=== PATIENT | male | born 1980 | race Two or more races ===

== ENCOUNTER 2024-12-20 16:10 | Inpatient (IN) | payer MEDICARE, MEDICAID, SELFPAY ==
[2024-12-20] VITALS (27 sets, daily range): BP systolic 136–209; BP diastolic 94–146; PULSE 82–162; RESP 6–31; TEMP 36.6–37.1; O2SAT 93–100; BMI 29.1; BMI 25.6
--- NOTE | 2024-12-20 16:23 | XR_ITS ---
Examination: CT brain head without contrast. 2-D sagittal coronal reconstructions Date and time of exam:December 20, 2024 1647 hrs., Comparison March 04, 2020 Indications: Seizure today CTDI: vol (mGy):60 DLP: (mGycm):1332 Technique: Multiple CT axial sections of the brain have been obtained, 5 mm slice thickness. Contrast has not been administered. 2-D sagittal, coronal reconstructions have been obtained Low dose protocols were performed. One or more of the following dose reduction techniques were used; automated exposure control, adjustment of the mA and/or KV according to patient size, use of iterative reconstruction technique. Findings: No significant ventricular enlargement. Encephalomalacia posterior left parietal lobe at the site of prior hemorrhage on the 2019. Scan Intra-axial or extra-axial hemorrhage density is not seen. No mass effect or midline shift Basal cisterns are not remarkable. Fourth ventricle is midline. Posterior left parietal craniotomy defect Impression: Negative for acute hemorrhage, mass effect or midline shift Advise clinical correlation and follow-up accordingly
--- NOTE | 2024-12-20 16:25 | EDNOTE_ITS ---
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 Per medics, family reported the patient was sitting in the car when he began seizing. Described as tonic-clonic lasting ~ 1 minute. On their arrival, noted patient was postictal and has no seizure activity en route. No medications given. Family on scene report the patient is on Keppra, compliant with medications, and last seizure was 1 year ago. Shortly after arriving to the ED, patient began seizing, lasting 2 minutes. Was given 4mg IV versed by medics and taken to ED room 9. On telemetry blood pressure was 200s systolic and HR 160s. Patient on initial assessment is altered and unable to provide any additional history. Related Data Home Medications ?Medication ?Instructions ?Recorded ?Confirmed clonidine HCl 0.1 mg tablet 0.1 mg PO BID 12/21/24 losartan 100 mg tablet 100 mg PO QDAY 12/21/2411/26 Previous Rx's ?Medication ?Instructions ?Recorded lacosamide 100 mg tablet 100 mg PO BID #60 tabs 12/23 levetiracetam 750 mg tablet 750 mg PO BID 30 days #60 tabs 12/23/24 (Keppra) pantoprazole 40 mg tablet,delayed 40 mg PO QDAY #30 ta bs 12/23/24 release Allergies Allergy/AdvReac Type Severity Reaction Status Date / Time No Known Allergies Allergy Verified 06/28/18 16:33 Review of Systems Review of Systems ROS Unobtainable: unobtainable due to mental status Past Medical History Past Medical History CARDIAC: Positive Hypertension Social History SMOKING STATUS: Unknown if ever smoked SUBSTANCE USE: marijuana ED Exam Narrative Physical exam: diaphoretic alterd tachycardic General General appearance: Present in distress and other (Altered, actively seizing, not following commands, diaphoretic) Head Head exam: Present atraumatic Eye Eye exam: Present PERRL ENT ENT exam: Present normal exam, normal oropharynx and mucous membranes moist Neck Neck exam: Present normal inspection Chest Chest inspection: Present normal inspection and symmetric chest wall rise Respiratory Respiratory exam: Present normal lung sounds bilaterally; Absent respiratory distress Cardiovascular Cardiovascular exam: Present tachycardia and normal heart sounds Abdominal Exam Abdominal exam: Present soft and normal bowel sounds; Absent distention, tenderness or guarding Extremities Exam Extremities exam: Present normal inspection Neurological Exam Neurological exam: Present other (Altered, actively seizing, not following commands, moving all 4 extremities) Skin Skin exam: Present warm, dry, intact, normal color and diaphoresis Course Quality Measures none Orders Category Date Time Status CT head/brain wo con Stat Exams 12/20/24 16:23 Completed CBC Stat Lab 12/20/24 16:25 Completed CMP [Comprehensive Metabolic Panel] Stat Lab 12/20/24 16:25 Completed Drug Screen,Urine Stat Lab 12/20/24 18:01 Completed PT [Prothrombin Time with INR] Stat Lab 12/20/24 16:25 Completed Path Review Blood Smear Stat Lab 12/20/24 16:25 Completed UA, C/S IF [Urinalysis, C/S if Indicated] Stat Lab 12/20/24 18:02 Completed DILTIAZEM in D5W 125 MG Med 12/20/24 17:04 Discontinued 125 mg in 125 ml IV 5 mg/hr Diltiazem Inj [Cardizem Inj] Med 12/20/24 16:54 Discontinued 10 mg IV X1 ONE Diltiazem Inj [Cardizem Inj] Med 12/20/24 16:42 Discontinued 125 mg IV .STK-MED ONE Diltiazem Inj [Cardizem Inj] Med 12/20/24 16:54 Discontinued 15 mg IV X1 ONE Diltiazem Inj [Cardizem Inj] Med 12/20/24 17:55 Discontinued 15 mg IV X1 ONE Midazolam Inj [Versed Inj] Med 12/20/24 16:15 Discontinued 2 mg .ROUTE .STK-MED ONE Midazolam Inj [Versed Inj] Med 12/20/24 16:16 Discontinued 4 mg .ROUTE .STK-MED ONE Midazolam Inj [Versed Inj] Med 12/20/24 16:36 Discontinued 5 mg IVP X1 ONE Ondansetron Inj [Zofran Inj] Med 12/20/24 16:24 Discontinued 4 mg IVP X1 ONE levETIRAcetam INJ [Keppra Inj] Med 12/20/24 16:24 Discontinued 1,000 mg IVP X1 ONE Vital Signs Vital signs: Vital Signs Temperature 97.8 F 12/20/24 16:31 Pulse Rate 159 H 12/20/24 16:31 Respiratory Rate 20 12/20/24 16:31 Blood Pressure 209/146 H 12/20/24 16:31 Pulse Oximetry (%) 96 12/20/24 16:31 Oxygen Delivery Method Oxy Mask 12/20/24 16:31 Oxygen Flow Rate 15 12/20/24 16:31 Seizure MDM Narrative MDM Narrative:: Es Doan am scribing for and in the presence of Dr. Perkins. Patient is a 44 yo male with hx of epilepsy in the ED with recurrent seizure and tachycardia. Patient post ictal on initial assessment. VS and exam as listed. Ordered labs, meds, EKG, CT brain. CT brain w/o evidence of acute abnormality, labs w/o any acute hematologic or metabolic abnormality. EKG with evidence of SVT. Patient HR improved with ice packs briefly, then required multiple doses of diltiazem to control heart rate. Given patient post-ictal, hx of intracranial hemorrhage consulted cardiology for guidance as patient with recurrent SVT. 4:52p I spoke with learning and development officer Dr. Pablo. Discussed ED course, persistent SVT and he advised keeping the patient on Diltiazem, did not advise starting on Cardizem. 4:58p I spoke with pharmacy regarding Diltiazem drip. 5:00p I again spoke with learning and development officer Dr. Pablo. He requests we put patient on Diltiazem 5mg/hr. If the HR is greater than 110 after 1 hour states we can increase to 10mg/hr if acceptable or if HR does not drop below 130s. However, states if blood pressure remains okay and has no known heart disease it is okay and can stay on Diltiazem. 6:00p I spoke with hospitalist Dr. Lee. Discussed patients PMHx, HPI, ED course, exam findings, labs, and radiology results. She agrees to accept the patient for admission. Patient data External records reviewed:: [facility] previous records and EMS form Clinical information provided by:: EMS and family Social determinants that could affect healthcare access:: none Patient has the following chronic illnesses:: hemorrhagic stroke (2019 and 2020) with residual right-sided weakness, seizures How is presenting disease/condition affected by chronic disease/condition?: exacerbated by Evaluation data The following diagnostics were reviewed and interpreted by me:: lab results, radiology exam(s) and EKG tracing(s) Lab and/or radiology exams considered but not ordered:: None Interpretation Summary: See MDM Medications / Prescriptions Medications or Prescriptions considered but not ordered:: None Medication administrations:: Medication Administration History Discontinued Medications Acetaminophen (Acetaminophen 325 Mg Tablet) 650 mg PO Q6H PRN PRN Reason: Fever >101.5 Stop: 01/19/25 18:58 Benzocaine (Benzocaine 20% (Hurricaine) [place] 1 Dose) 0 dose TOP X1 ONE Stop: 12/22/24 17:47 Last Admin: 12/23/24 07:58 Dose: Not Given Documented By: STEF Non-Admin Reason: Discontinued Benzocaine (Benzocaine 20% (Hurricaine) [place] 1 Dose) Confirm Administered Dose 1 dose TOP .STK-MED ONE Stop: 12/22/24 17:49 Clonidine (Clonidine Hcl 0.1 Mg Tablet) 0.1 mg PO BID ANDREA Stop: 01/21/25 08:59 Last Admin: 12/23/24 08:17 Dose: 0.1 mg Documented By: Admin: 12/22/24 20:30 Dose: 0.1 mg Documented By: Admin: 12/22/24 09:01 Dose: Not Given Documented By: LISA Non-Admin Reason: NPO Clonidine (Clonidine Hcl 0.1 Mg Tablet) 0.1 mg PO X1 ONE Stop: 12/23/24 12:06 Last Admin: 12/23/24 12:13 Dose: 0.1 mg Documented By: CASSANDRA Diazepam (Diazepam Inj 5 Mg/Ml Vial 2 Ml) 5 mg IVP X1 ONE Stop: 12/20/24 21:30 Diltiazem HCl (Diltiazem Inj 5 Mg/Ml Vial 25 Ml) Confirm Administered Dose 125 mg IV .STK-MED ONE Stop: 12/20/24 16:43 Last Admin: 12/20/24 17:42 Dose: Not Given Documented By: LEYDA Non-Admin Reason: Duplicate Medication on eMAR Diltiazem HCl (Diltiazem Inj 5 Mg/Ml Vial 5 Ml) 15 mg IV X1 ONE Stop: 12/20/24 16:55 Last Admin: 12/20/24 16:58 Dose: 15 mg Documented By: BY Diltiazem HCl (Diltiazem Inj 5 Mg/Ml Vial 5 Ml) 10 mg IV X1 ONE Stop: 12/20/24 16:55 Last Admin: 12/20/24 17:33 Dose: 10 mg Documented By: LEYDA Diltiazem HCl (Diltiazem Inj 5 Mg/Ml Vial 5 Ml) 15 mg IV X1 ONE Stop: 12/20/24 17:56 Last Admin: 12/20/24 17:29 Dose: 15 mg Documented By: BY Diphenhydramine HCl (Diphenhydramine Inj 50 Mg/Ml Vial) 25 mg IVP PRNMRX1 PRN PRN Reason: MODERATE SEDATION Stop: 12/22/24 19:46 Diphenhydramine HCl (Diphenhydramine Inj 50 Mg/Ml Vial) Confirm Administered Dose 50 mg .ROUTE .STK-MED ONE Stop: 12/22/24 17:49 Fentanyl Citrate (Fentanyl Cit Inj 50 Mcg/Ml Amp 2ml) 50 mcg IVP Q2M PRN PRN Reason: MODERATE SEDATION Stop: 12/22/24 19:46 Fentanyl Citrate (Fentanyl Cit Inj 50 Mcg/Ml Amp 2ml) Confirm Administered Dose 100 mcg .ROUTE .STK-MED ONE Stop: 12/22/24 17:49 Hydralazine HCl (Hydralazine Inj 20 Mg/Ml Vial) 10 mg IVP Q6HR PRN PRN Reason: SBP>180 or DBP>100 Stop: 01/20/25 04:23 Last Admin: 12/21/24 04:36 Dose: 10 mg Documented By: CMC Hydralazine HCl (Hydralazine Inj 20 Mg/Ml Vial) Confirm Administered Dose 20 mg .ROUTE .STK-MED ONE Stop: 12/22/24 18:15 Hydralazine HCl (Hydralazine Inj 20 Mg/Ml Vial) 10 mg IVP X1 ONE Stop: 12/22/24 18:37 Last Admin: 12/22/24 18:41 Dose: 10 mg Documented By: EF Hydralazine HCl (Hydralazine Inj 20 Mg/Ml Vial) 10 mg IVP Q4HR PRN PRN Reason: SBP>150 Stop: 01/22/25 08:23 Diltiazem HCl (Diltiazem In D5w 125 Mg) 125 mg in 125 mls @ 5 mls/hr IV .Q24H ANDREA; Protocol Stop: 01/19/25 17:03 Last Admin: 12/20/24 17:39 Dose: 5 mg/hr, 5 mls/hr Documented By: LEYDA Lactated Ringer's (Lactated Ringers) 1,000 mls @ 999 mls/hr IV .Q1H1M ONE Stop: 12/20/24 19:57 Last Infusion: 12/20/24 22:56 Dose: Infused Documented By: [email or web address] Admin: 12/20/24 16:45 Dose: 999 mls/hr Documented By: BY Sodium Chloride (Ns) 1,000 mls @ 100 mls/hr IV .Q10H ANDREA Stop: 01/19/25 18:59 Last Infusion: 12/21/24 13:52 Dose: 100 mls/hr Documented By: Infusion: 12/21/24 12:50 Dose: 0 mls/hr Documented By: Admin: 12/21/24 07:52 Dose: 100 mls/hr Documented By: Infusion: 12/21/24 06:09 Dose: Infused Documented By: Admin: 12/20/24 20:09 Dose: 100 mls/hr Documented By: KEN Potassium Chloride (Kcl Ivpb) 10 meq in 100 mls @ 100 mls/hr IV Q1H ANDREA Stop: 12/20/24 21:03 Last Infusion: 12/21/24 00:00 Dose: Infused Documented By: Admin: 12/20/24 21:46 Dose: 100 mls/hr Documented By: [email or web address] Infusion: 12/20/24 21:09 Dose: Infused Documented By: [email or web address] Admin: 12/20/24 20:08 Dose: 100 mls/hr Documented By: KEN Diltiazem HCl (Diltiazem In D5w 125 Mg) 125 mg in 125 mls @ 10 mls/hr IV .[id number] ANDREA; Protocol Stop: 01/19/25 19:12 Last Admin: 12/21/24 04:07 Dose: 15 mg/hr, 15 mls/hr Documented By: Titration: 12/21/24 04:07 Dose: Infused Documented By: Titration: 12/21/24 00:00 Dose: 15 mg/hr, 15 mls/hr Documented By: Titration: 12/20/24 22:58 Dose: 15 mg/hr, 15 mls/hr Documented By: Admin: 12/20/24 20:10 Dose: 10 mg/hr, 10 mls/hr Documented By: KEN Magnesium Sulfate (Magnesium Sulfate Ivpb) 2 gm in 50 mls @ 25 mls/hr IV X1 ONE Stop: 12/21/24 10:39 Last Admin: 12/21/24 09:17 Dose: 25 mls/hr Documented By: LISA Sodium Phosphate 22.5 mmol/ (Sodium Chloride) 507.5 mls @ 84.583 mls/hr IV X1 ONE Stop: 12/21/24 15:44 Last Admin: 12/21/24 12:50 Dose: 84.583 mls/hr Documented By: LISA Sodium Chloride (Ns) 1,000 mls @ 50 mls/hr IV .Q20H ANDREA Stop: 01/20/25 18:29 Last Admin: 12/22/24 21:14 Dose: 50 mls/hr Documented By: Infusion: 12/22/24 16:09 Dose: Infused Documented By: Admin: 12/21/24 20:09 Dose: 50 mls/hr Documented By: ARDEN Labetalol HCl (Labetalol Inj 5 Mg/Ml Vial 20 Ml) 10 mg IVP X1 ONE Stop: 12/20/24 18:58 Labetalol HCl (Labetalol Inj 5 Mg/Ml Vial 20 Ml) 10 mg IVP X1 ONE Stop: 12/21/24 18:07 Last Admin: 12/21/24 20:24 Dose: 10 mg Documented By: ARDEN Labetalol HCl (Labetalol Inj 5 Mg/Ml Vial 20 Ml) 10 mg IVP Q4HR PRN PRN Reason: SBP >160 Stop: 01/20/25 18:29 Labetalol HCl (Labetalol Inj 5 Mg/Ml Vial 20 Ml) 10 mg IVP X1 ONE Stop: 12/21/24 21:42 Last Admin: 12/21/24 21:53 Dose: 10 mg Documented By: ARDEN Lacosamide (Lacosamide Inj 200 Mg/20 Ml Vial) 200 mg IVP X1 ONE Stop: 12/20/24 20:04 Last Admin: 12/20/24 21:46 Dose: 200 mg Documented By: KEN Lacosamide (Lacosamide Inj 200 Mg/20 Ml Vial) 100 mg IVP BID ANDREA Stop: 01/20/25 08:59 Last Admin: 12/23/24 08:30 Dose: 100 mg Documented By: Admin: 12/22/24 20:31 Dose: 100 mg Documented By: Admin: 12/22/24 10:55 Dose: 100 mg Documented By: Admin: 12/21/24 20:30 Dose: 100 mg Documented By: Admin: 12/21/24 09:18 Dose: 100 mg Documented By: LISA Levetiracetam (Levetiracetam Inj 100 Mg/Ml Vial 5ml) 1,000 mg IVP X1 ONE Stop: 12/20/24 16:25 Last Admin: 12/20/24 16:30 Dose: 1,000 mg Documented By: LETY Levetiracetam (Levetiracetam Inj 100 Mg/Ml Vial 5ml) 500 mg IVP Q12HR ANDREA Stop: 01/19/25 20:59 Last Admin: 12/23/24 08:31 Dose: 500 mg Documented By: Admin: 12/22/24 20:31 Dose: 500 mg Documented By: Admin: 12/22/24 10:57 Dose: 500 mg Documented By: Admin: 12/21/24 20:30 Dose: 500 mg Documented By: Admin: 12/21/24 09:18 Dose: 500 mg Documented By: Admin: 12/20/24 21:46 Dose: 500 mg Documented By: KEN Losartan Potassium (Losartan Potassium 25 Mg Tablet) 100 mg PO QDAY ANDREA Stop: 01/22/25 08:59 Last Admin: 12/23/24 08:16 Dose: 100 mg Documented By: CASSANDRA Midazolam HCl (Midazolam Inj 1 Mg/Ml Vial 2 Ml) Confirm Administered Dose 2 mg .ROUTE .STK-MED ONE Stop: 12/20/24 16:16 Last Admin: 12/20/24 16:37 Dose: Not Given Documented By: ROSE Non-Admin Reason: Change of Condition Midazolam HCl (Midazolam Inj 1 Mg/Ml Vial 2 Ml) Confirm Administered Dose 4 mg .ROUTE .STK-MED ONE Stop: 12/20/24 16:17 Last Admin: 12/20/24 16:37 Dose: Not Given Documented By: ROSE Non-Admin Reason: Change of Condition Midazolam HCl (Midazolam Inj 1 Mg/Ml Vial 2 Ml) 5 mg IVP X1 ONE Stop: 12/20/24 16:37 Last Admin: 12/20/24 17:42 Dose: Not Given Documented By: LEYDA Non-Admin Reason: Discontinued Midazolam HCl (Midazolam Inj 1 Mg/Ml Vial 2 Ml) 2 mg IVP Q5MIN PRN PRN Reason: breakthrough seizure Midazolam HCl (Midazolam Inj 1 Mg/Ml Vial 2 Ml) 2 mg IVP Q2M PRN PRN Reason: Moderate Sedation Stop: 12/22/24 19:46 Midazolam HCl (Midazolam Inj 1 Mg/Ml Vial 2 Ml) Confirm Administered Dose 4 mg .ROUTE .STK-MED ONE Stop: 12/22/24 17:49 Ondansetron HCl (Ondansetron Inj 2 Mg/Ml Inj 2 Ml) 4 mg IVP X1 ONE; Protocol Stop: 12/20/24 16:25 Last Admin: 12/20/24 16:28 Dose: 4 mg Documented By: BY Ondansetron HCl (Ondansetron Inj 2 Mg/Ml Inj 2 Ml) 4 mg IVP Q6H PRN; Protocol PRN Reason: NAUSEA OR VOMITING Stop: 01/19/25 18:58 Last Admin: 12/20/24 23:23 Dose: 4 mg Documented By: ARDEN Ondansetron HCl (Ondansetron Inj 2 Mg/Ml Inj 2 Ml) 4 mg IVP Q4HR PRN; Protocol PRN Reason: NAUSEA OR VOMITING Stop: 01/19/25 18:58 Last Admin: 12/22/24 20:31 Dose: 4 mg Documented By: Admin: 12/21/24 04:36 Dose: 4 mg Documented By: ARDEN Pantoprazole Sodium (Pantoprazole Inj 40 Mg Vial) 40 mg IVP BID [facility] Stop: 01/21/25 20:59 Last Admin: 12/23/24 08:17 Dose: 40 mg Documented By: Admin: 12/22/24 20:31 Dose: 40 mg Documented By: ARDEN Potassium Phos/Sodium Phos (Naph,[facility] 1 Packet (1.5 Gm)) 1 packet PO BID ANDREA Stop: 01/20/25 08:59 See above Consultations Consultation(s) initiated? (list below): Yes Consultation #1 (Physician, Specialty, Details): See mdm Diagnosis Seizure Differential Diagnosis: other (See MDM) Most likely diagnosis given after review of the tests above:: Breakthrough seizure SVT Hypertensive emergency Admission Indicated Admission indicated?: indicated Admission Request Was there a request for admission?: Yes Admission Attestation Admission request attestation: Discussed case with Hospitalist service regarding admission. Discussed patients ED course, exam findings, labs, and radiology results. The Hospitalist [agrees] to accept the patient for admission. Disposition Plan Disposition Plan: Admit Critical Care Time Critical Care Time Critical Care Time: Yes Total Critical Care Time (min.): 60 Attestation: The high probability of sudden, clinically significant deterioration in the patient's condition required the highest level of my preparedness to intervene urgently. The services I provided to this patient were to treat and/or prevent clinically significant deterioration. Services included the following: chart data review, reviewing nursing notes and/or old charts, documentation time, solutions architect consultant collaboration regarding findings and treatment options, medication orders and management, direct patient care, vital sign assessments and ordering, interpreting and reviewing diagnostic studies and lab tests. Aggregate critical care time includes only time during which I was engaged in work directly related to the patient's care, as described above, whether at bedside or elsewhere in the Emergency Department. It did not include time spent performing other reported procedures or the services of residents, students, nurses or physician assistants. Discharge Plan Plan Patient Disposition: Admit Acute Care w/in Hospital Patient condition on transfer: Stable Problem List Clinical Impression: SVT (supraventricular tachycardia), Breakthrough seizure, Hypertensive emergency Patient/Caregiver Discharge Instructions Other Activity Instructions:: Increase your Keppra dose from 500mg BID to 750 BID. Continue taking lacosamide 100mg BID to prevent seizures. Continue taking pantoprazole as treatment for esophageal ulcers. Follow up with GI to review H pylori results. Resume other previous medications. Follow up with PCP in 1-2 weeks.
[2024-12-20] MEDS: ONDANSETRON INJ 2 MG/ML INJ 2 ML 4 MG IVP ×2 (16:28→23:23)
[2024-12-20] MEDS: levETIRAcetam INJ 100 MG/ML VIAL 5ML 1000 MG IVP (16:30)
[2024-12-20] MEDS: RINGERS LACTATED 1000 ML 1,000 ML 999 ML IV (16:45)
[2024-12-20 16:49] LABS: Basophils # (Auto) 0.1 Thou/mm3 (0.0-0.2); Basophils % (Auto) 1 % (0-2.5); Eosinophils # (Auto) 0.2 Thou/mm3 (0.0-0.5); Eosinophils % (Auto) 1 % (0-10); Hematocrit 50.5 % (41.0-53.0); Hemoglobin 16.8 g/dL (13.5-16.0); Immature Granulocytes Auto 0.20 Thou/mm3 (0.00-0.00); Lymphocytes # (Auto) 7.1 Thou/mm3 (1.0-4.8); Lymphocytes % (Auto) 46 % (10-50); Mean Corpuscular HGB Conc 33.3 g/dl (31.0-37.0); Mean Corpuscular Hemoglobin 31.1 pg (25.0-35.0); Mean Corpuscular Volume 94 fL (80-100); Monocytes # (Auto) 1.5 Thou/mm3 (0.0-0.8); Monocytes % (Auto) 10 % (0-12); Neutrophils # (Auto) 6.3 Thou/mm3 (1.8-7.7); Neutrophils % (Auto) 41 % (37-80); Nucleated Red Blood Cell # 0.00 Thou/mm3 (0.00-0.00); Nucleated Red Blood Cell % 0 /100 WBC (0); Platelet Count 277 Thou/mm3 (140-440); RDW Standard Deviation 44.0 fL (35.1-43.9); Red Blood Count 5.40 Miln/mm3 (4.50-5.90); White Blood Count 15.4 Thou/mm3 (3.8-10.6)
[2024-12-20] MEDS: DILTIAZEM INJ 5 MG/ML VIAL 5 ML 15 MG IV ×2 (16:58→17:29)
[2024-12-20 17:03] LABS: INR 1.0 (0.9-1.3); Prothrombin Time 10.9 Seconds (9.0-12.2)
[2024-12-20 17:06] LABS: Alanine Aminotransferase 28 U/L (10-49); Albumin, Serum 4.6 gm/dL (3.5-5.0); Albumin/Globulin Ratio 1.4 (1.2-2.2); Alkaline Phosphatase 95 U/L (46-116); Anion Gap 20 (7-16); Aspartate Amino Transferase 38 U/L (0-34); BUN/Creatinine Ratio 9 Ratio (12-20); Bilirubin,Total 0.7 mg/dL (0.3-1.2); Blood Urea Nitrogen 17 mg/dL (9-23); Calcium 10.0 mg/dL (8.3-10.6); Calcium (Corrected) 10.0 mg/dL (8.5-10.1); Carbon Dioxide 21.3 mMol/L (20.0-31.0); Chloride 102 mMol/L (98-107); Creatinine (Component) 2.0 mg/dL (0.6-1.3); Estimated Creatinine Clearance 48.9 mL/min (>60); Globulin 3.4 gm/dL (2.3-3.5); Glucose 168 mg/dL (74-106); Osmolality,Calculated 290 (275-295); Potassium 3.3 mMol/L (3.4-5.1); Sodium 143 mMol/L (136-145); Total Protein 8.0 gm/dL (5.7-8.2); eGFR 41 See Note
--- NOTE | 2024-12-20 17:29 | PC.NURSE ---
PATIENT IS OUT TO CT
[2024-12-20] MEDS: DILTIAZEM INJ 5 MG/ML VIAL 5 ML 10 MG IV (17:33)
[2024-12-20] MEDS: DILTIAZEM in D5W 125 MG 125 MG/125 ML BAG IV (17:39)
[2024-12-20 18:08] LABS: Collection Type, Urine Catheter; Squamous Epithelial Cell,Urine 0 /hpf (0-5)
[2024-12-20 18:24] LABS: Bilirubin,Urine Negative (Negative); Blood,Urine Trace (Negative); Clarity,Urine Clear (Clear/Hazy); Color,Urine Colorless (Lt Yel-Yel); Culture Indicated,Urine Not Indicated; Glucose, Urine Negative (Negative); Hyaline Casts,Urine < 1 /hpf (0-1); Ketones,Urine Negative (Negative); Leukocyte Esterase,Urine Negative (Negative); Nitrite,Urine Negative (Negative); PH,Urine 5.5 (5.0-7.0); Protein,Urine Trace (Neg - Trace); RBC,Urine < 1 /hpf (0-3); Specific Gravity,Urine 1.008 (1.001-1.035); Urobilinogen,Urine Negative mg/dL (0.0-1.0); WBC,Urine 1 /hpf (0-5)
[2024-12-20 18:28] LABS: Amphetamine/Methamp Scrn,U Negative (Negative); Barbiturate Screen,Urine Negative (Negative); Benzodiazepines Screen,Urine Positive (Negative); Benzoylecgonine Screen, Ur Negative (Negative); Fentanyl Screen,Urine Negative (Negative); Opiate Screen,Urine Negative (Negative); THC Screen,Urine Negative (Negative)
--- NOTE | 2024-12-20 18:37 | PC.NURSE ---
PATIENT WAS ABLE TO OPEN EYES
--- NOTE | 2024-12-20 18:55 | PC.NURSE ---
MD AT BEDSIDE SPEAKING TO FAMILY
--- NOTE | 2024-12-20 19:20 | PD.HHHP ---
Documentation for date of: 12/20/24 HPI - Hospitalist History of Present Illness History of present illness: Patient is a 44 year old male with Pmhx of HTN, CKD, intracranial hemorrhage and seizures who was brought in by ambulance due to breakthrough seizures. Patient was witnessed to have a seizure in the car per EMS that lasted about 1 minute. He was subsequently brought to the ED during which the patient had another tonic clonic seizure that lasted about 2minutes and resolved after receiving 5 mg of Versed. Per nurse at bedside, patient also received 1 litre of LR. Patient has expressive aphasia at baseline and is conserved by his two aunts who help make his medical decisions. Patient's aunt, Sarina, was able to provide further history over the phone with patient's brother at bedside as patient remained postictal at time of my evaluation. Patient has not had a seizure for nearly 2 years. He takes keppra 500mg PO BID. He also takes clonidine 0.2mg PO BID and losartan 100mg PO daily for his hypertension. His aunts will place his medications in his pill box, but patient is otherwise quite independent and ambulatory at baseline. They believe that he has been compliant with his medications at home. Patient was also noted to be tachycardic in ED with elevated BP. Patient received cardizem pushes, but patient remained tachycardic. Cardiology was consulted from ED and recommended cardizem drip. CT head was done in the ED showing no acute intracranial findings. Hospitalist service was called for admission for further workup and medical management of breakthrough seizures and tachycardia. Patient remains postictal at this time, but withdrawing from noxious stimuli and able to perform purposeful movement such as adjusting his pillow and moving [id number]. He will open his eyes upon calling his name, but does not follow commands due to lethargy. Past medical history: Intracranial hemorrhage, CKD, hypertension, seizures Past surgical history: Evacuation of intracranial hemorrhage Family history: Hypertension in both mother and father Social history: Social drinker and social tobacco use. 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 Review of Systems Review of Systems ROS Unobtainable: unobtainable due to mental status Past Medical History Past Medical History Comments PMH COMMENT: As per above Meds Home Medications and Allergies Home Medications ?Medication ?Instructions ?Recorded ?Confirmed ?Type No Known Home Medications 03/04/20 03/04/20 History Allergies Allergy/AdvReac Type Severity Reaction Status Date / Time No Known Allergies Allergy Verified 06/28/18 16:33 Exam Vital Signs Temp Pulse Resp BP Pulse Ox O2 Del Method O2 Flow Rate 97.9 F 123 H 16 181/99 H 97 Oxy Mask 15 12/20/24 18:28 12/20/24 18:28 12/20/24 18:28 12/20/24 18:28 12/20/24 18:28 12/20/24 18:28 12/20/24 18:28 Narrative Gen: No acute distress HEENT: NCAT, PERRLOU, pupils dilated, Sclera anicteric, conjunctiva noninjected, oral mucosa dry, no bleeding or hematoma noted on tongue Neck: Supple,full range of motion, no LAD CV: tachycardic, no murmurs, rubs or gallops Resp: mild rhonchi noted in left lower lung field GI: abdomen soft, bowel sounds noted, no tenderness to palpation, no guarding or rebound tenderness, no organomegaly Skin: clean, dry, no rashes, lesions or ecchymosis Ext: no clubbing, cyanosis, or edema Neuro: somnolent, opens eyes to verbal stimuli, withdraws to noxious stimuli, unable to follow commands, right upper extremity appears to be weaker than left. He is otherwise able to move all four extremities spontaneously. Results - Hospitalist Labs Diagrams: 12/20/24 16:25 12/20/24 16:25 Labs: Short CBC 12/20/24 Range/Units 16:25 WBC 15.4 H (3.8-10.6) Thou/mm3 Hgb 16.8 H (13.5-16.0) g/dL Hct 50.5 (41.0-53.0) % Plt Count 277 (140-440) Thou/mm3 BMP 12/20/24 16:25 Sodium 143 Potassium 3.3 L Chloride 102 Carbon Dioxide 21.3 BUN 17 Creatinine 2.0 H Glucose 168 H Calcium 10.0 Liver Function 12/20/24 Range/Units 16:25 Total Bilirubin 0.7 (0.3-1.2) mg/dL AST 38 H (0-34) U/L ALT 28 (10-49) U/L Alkaline Phosphatase 95 (46-116) U/L Albumin 4.6 (3.5-5.0) gm/dL Urine 12/20/24 Range/Units 18:02 Urine Color Colorless A (Lt Yel-Yel) Urine Clarity Clear (Clear/Hazy) Urine pH 5.5 (5.0-7.0) Ur Specific [place] 1.008 (1.001-1.035) Urine Protein Trace (Neg - Trace) Urine Glucose (UA) Negative (Negative) Assessment & Plan -Hospitalist Patient Synopsis Patient is a 44 year old male with Pmhx of HTN, CKD, intracranial hemorrhage and seizures who was brought in by ambulance due to breakthrough seizures. Patient was witnessed to have a seizure in the car per EMS that lasted about 1 minute. He was subsequently brought to the ED during which the patient had another tonic clonic seizure that lasted about 2minutes and resolved after receiving 5 mg of Versed. Per nurse at bedside, patient also received 1 litre of LR. Patient has expressive aphasia at baseline and is conserved by his two aunts who help make his medical decisions. Patient's aunt, Sarina, was able to provide further history over the phone with patient's brother at bedside as patient remained postictal at time of my evaluation. Patient has not had a seizure for nearly 2 years. He takes keppra 500mg PO BID. He also takes clonidine 0.2mg PO BID and losartan 100mg PO daily for his hypertension. His aunts will place his medications in his pill box, but patient is otherwise quite independent and ambulatory at baseline. They believe that he has been compliant with his medications at home. Patient was also noted to be tachycardic in ED with elevated BP. Patient received cardizem pushes, but patient remained tachycardic. Cardiology was consulted from ED and recommended cardizem drip. CT head was done in the ED showing no acute intracranial findings. Hospitalist service was called for admission for further workup and medical management of breakthrough seizures and tachycardia. Patient remains postictal at this time, but withdrawing from noxious stimuli and able to perform purposeful movement such as adjusting his pillow and moving [id number]. He will open his eyes upon calling his name, but does not follow commands due to lethargy. Breakthrough Seizure Hx of Intracranial hemorrhage - admit to telemetry - CT head negative for acute intracranial hemorrhage - Versed 2mg IVP q5min PRN for breakthrough seizures - - seizure and aspiration precautions - Will place NPO as patient remains post-ictal - Quality Measures Quality Measures none
--- NOTE | 2024-12-20 19:40 | XR_ITS ---
Examination: AP chest single view Technique one AP portable supine chest single view Date and time: December 20, 2024, 1948 hrs., Comparison March 04, 2020 Indications: Shortness of breath today. Findings: Mild enlargement cardiac contour. Subsegmental atelectasis left base Mild to moderate vascular congestion. No lobar pneumonia or pulmonary edema Impression: Mild to moderate vascular congestion
--- NOTE | 2024-12-20 19:44 | ECHO_ITS ---
Transthoracic Echo Report Ht (in): 67 Wt (lb): 186 Exam Location: Echo Lab Status: Inpatient [employer] Operator: Jovita Dewitt Indications: Procedure Performed: BP: 105 / 102 HR: Technical Quality: Technically difficult study MEASUREMENTS (Male / Female) Normal Values 2D ECHO LV Diastolic Diameter PLAX 5.0 cm 4.2 - 5.9 / 3.9 - 5.3 cm LV Systolic Diameter PLAX 3.3 cm IVS Diastolic Thickness 1.3 cm 0.6 - 1.0 / 0.6 - 0.9 cm LVPW Diastolic Thickness 0.9 cm 0.6 - 1.0 / 0.6 - 0.9 cm LV Relative Wall Thickness 0.4 LVOT Diameter 1.7 cm Aortic Root Diameter 3.3 cm LV Ejection Fraction MOD BP 73.6 % >= 55 % LV Ejection Fraction MOD 4C 74.6 % LV Ejection Fraction 4C AL 75.4 % LV Ejection Fraction MOD 2C 71.5 % LV Ejection Fraction 2C AL 70.9 % LA Volume Index 14.5 cm?/m? 16 - 28 cm?/m? M-MODE Aortic Root Diameter MM 2.4 cm LA Systolic Diameter MM 3.6 cm LA Ao Ratio MM 1.5 AV Cusp Separation MM 2.3 cm DOPPLER AV Peak Velocity 119.0 cm/s AV Peak Gradient 5.7 mmHg AV Mean Gradient 3.0 mmHg AV Velocity Time Integral 27.3 cm LVOT Peak Velocity 109.0 cm/s LVOT Peak Gradient 4.8 mmHg LVOT Velocity Time Integral 22.5 cm AV Area Cont Eq vti 1.9 cm? AV Area Cont Eq pk 2.1 cm? MV Area PHT 4.2 cm? Mitral E Point Velocity 69.8 cm/s Mitral A Point Velocity 53.4 cm/s Mitral E to A Ratio 1.3 LV E' Lateral Velocity 7.1 cm/s Mitral E to LV E' Lateral Ratio 9.9 LV E' Septal Velocity 6.5 cm/s Mitral E to LV E' Septal Ratio 10.7 PV Peak Velocity 107.0 cm/s PV Peak Gradient 4.6 mmHg FINDINGS Left Ventricle Normal left ventricular size and systolic function with no obvious regional wall motion abnormalities. mild LVH. Normal left ventricular diastolic filling pattern for age. The ejection fraction is visually estimated at 55-60%. Right Ventricle The right ventricle is normal in size and systolic function. Left Atrium The left atrium is normal by two-dimensional, color flow and Doppler imaging with no structural abnormalities, no thrombus formation present. Right Atrium The right atrium is normal by two-dimensional imaging, color flow and Doppler imaging with no structural abnormalities, no thrombus formation present. Atrial Septum The interatrial septum appears normal with no evidence of a shunt. Aorta The aorta is normal by two-dimensional, color flow and Doppler interrogation. Mitral Valve The mitral valve is normal by two-dimensional, color flow and Doppler interrogation. Trace mitral regurgitation. Aortic Valve The aortic valve is trileaflet and normal by two-dimensional, color flow and Doppler interrogation. There is no significant aortic valve regurgitation. Tricuspid Valve The tricuspid valve is normal by two-dimensional, color flow and Doppler interrogation. There is trace tricuspid valve regurgitation. Pulmonic Valve The pulmonic valve is not well visualized. There is no significant pulmonic valve regurgitation. Vessels The pulmonary artery appears normal. The inferior vena cava pulmonary and hepatic veins appear normal. Pericardium The pericardium is normal by two-dimensional imaging. There is no significant pericardial effusion. CONCLUSIONS Indication: Tachyacrdia Normal LV size and function. Estimated EF at 55-60%. Normal left ventricular diastolic function. The RV is normal in size and systolic function. Trace MR and TR. Meera Pablo (Electronically Signed) Final Date: 22 December 2024 13:12
[2024-12-20 20:02] LABS: Path Review Blood Smear Sent to Pathologist
[2024-12-20] MEDS: POTASSIUM CHL 10 mEq IVPB 10 MEQ/100 ML BAG 100 MEQ IV ×2 (20:08→21:46)
[2024-12-20] MEDS: SODIUM CHLORIDE 0.9% 1000 ML 1,000 ML 100 ML IV (20:09)
[2024-12-20] MEDS: DILTIAZEM in D5W 125 MG 125 MG/125 ML BAG 10 MG IV (20:10)
[2024-12-20 20:14] LABS: Thyroid Stimulating Hormone 0.96 uIU/mL (0.55-4.78)
[2024-12-20 20:15] LABS: Alcohol, Blood Medical < 3.0 mg/dL (0-10.0)
[2024-12-20 20:46] LABS: Lactate (Lactic Acid) 3.5 mMol/L (0.4-2.0)
[2024-12-20] MEDS: LACOSAMIDE INJ 200 MG/20 ML VIAL IVP (21:46)
[2024-12-20] MEDS: levETIRAcetam INJ 100 MG/ML VIAL 5ML 500 MG IVP (21:46)
[2024-12-20 23:44] LABS: Reflex Lactate? Y
[2024-12-20 23:50] LABS: Base Excess, Venous 0 (-3-3); Lactic Acid, 3 HR 3.3 mMol/L (0.4-2.0); O2 Saturation, Venous 82 % (96-97); PCO2, Venous 45 mmHg (36-56); PO2, Venous 44 mmHg (15-58); pH, Venous 7.37 (7.33-7.66)
[2024-12-21] VITALS (13 sets, daily range): BP systolic 142–203; BP diastolic 91–119; PULSE 77–111; RESP 16–19; TEMP 36.8–37.4; O2SAT 92–98; BMI 25.6
[2024-12-21 00:05] LABS: Basophils # (Auto) 0.0 Thou/mm3 (0.0-0.2); Basophils % (Auto) 0 % (0-2.5); Eosinophils # (Auto) 0.0 Thou/mm3 (0.0-0.5); Eosinophils % (Auto) 0 % (0-10); Hematocrit 45.7 % (41.0-53.0); Hemoglobin 15.8 g/dL (13.5-16.0); Immature Granulocytes Auto 0.06 Thou/mm3 (0.00-0.00); Lymphocytes # (Auto) 0.4 Thou/mm3 (1.0-4.8); Lymphocytes % (Auto) 3 % (10-50); Mean Corpuscular HGB Conc 34.6 g/dl (31.0-37.0); Mean Corpuscular Hemoglobin 31.9 pg (25.0-35.0); Mean Corpuscular Volume 92 fL (80-100); Monocytes # (Auto) 1.1 Thou/mm3 (0.0-0.8); Monocytes % (Auto) 7 % (0-12); Neutrophils # (Auto) 13.8 Thou/mm3 (1.8-7.7); Neutrophils % (Auto) 90 % (37-80); Nucleated Red Blood Cell # 0.00 Thou/mm3 (0.00-0.00); Nucleated Red Blood Cell % 0 /100 WBC (0); Platelet Count 221 Thou/mm3 (140-440); RDW Standard Deviation 42.7 fL (35.1-43.9); Red Blood Count 4.96 Miln/mm3 (4.50-5.90); White Blood Count 15.4 Thou/mm3 (3.8-10.6)
[2024-12-21 00:14] LABS: Alanine Aminotransferase 33 U/L (10-49); Albumin, Serum 4.3 gm/dL (3.5-5.0); Albumin/Globulin Ratio 1.5 (1.2-2.2); Alkaline Phosphatase 78 U/L (46-116); Anion Gap 11 (7-16); Aspartate Amino Transferase 26 U/L (0-34); BUN/Creatinine Ratio 15 Ratio (12-20); Bilirubin,Total 0.7 mg/dL (0.3-1.2); Blood Urea Nitrogen 24 mg/dL (9-23); Calcium 9.6 mg/dL (8.3-10.6); Calcium (Corrected) 9.6 mg/dL (8.5-10.1); Carbon Dioxide 25.3 mMol/L (20.0-31.0); Chloride 101 mMol/L (98-107); Creatinine (Component) 1.6 mg/dL (0.6-1.3); Estimated Creatinine Clearance 61.2 mL/min (>60); Globulin 2.9 gm/dL (2.3-3.5); Glucose 158 mg/dL (74-106); Magnesium 1.9 mg/dL (1.6-2.6); Osmolality,Calculated 280 (275-295); Potassium 4.6 mMol/L (3.4-5.1); Sodium 137 mMol/L (136-145); Total Protein 7.2 gm/dL (5.7-8.2); eGFR 54 See Note
[2024-12-21] MEDS: DILTIAZEM in D5W 125 MG 125 MG/125 ML BAG 15 MG IV (04:07)
--- NOTE | 2024-12-21 04:26 | XR_ITS ---
Examination: Abdomen AP single view Technique: AP portable supine abdomen, single view Exam date and time: December 21, 2024, 0509 hrs. Indications: Onset abdominal pain today. Findings: Moderate air and stool throughout the colon No obstruction No free air No renal or ureteral calculi Mild narrowing hip joints Impression: Moderate air and stool throughout the colon, no obstruction
[2024-12-21] MEDS: ONDANSETRON INJ 2 MG/ML INJ 2 ML 4 MG IVP (04:36)
[2024-12-21] MEDS: hydrALAZINE INJ 20 MG/ML VIAL 10 MG IVP (04:36)
[2024-12-21 06:16] LABS: Basophils # (Auto) 0.0 Thou/mm3 (0.0-0.2); Basophils % (Auto) 0 % (0-2.5); Eosinophils # (Auto) 0.0 Thou/mm3 (0.0-0.5); Eosinophils % (Auto) 0 % (0-10); Hematocrit 44.4 % (41.0-53.0); Hemoglobin 15.2 g/dL (13.5-16.0); Immature Granulocytes Auto 0.06 Thou/mm3 (0.00-0.00); Lymphocytes # (Auto) 0.9 Thou/mm3 (1.0-4.8); Lymphocytes % (Auto) 7 % (10-50); Mean Corpuscular HGB Conc 34.2 g/dl (31.0-37.0); Mean Corpuscular Hemoglobin 31.0 pg (25.0-35.0); Mean Corpuscular Volume 91 fL (80-100); Monocytes # (Auto) 0.5 Thou/mm3 (0.0-0.8); Monocytes % (Auto) 4 % (0-12); Neutrophils # (Auto) 11.4 Thou/mm3 (1.8-7.7); Neutrophils % (Auto) 88 % (37-80); Nucleated Red Blood Cell # 0.00 Thou/mm3 (0.00-0.00); Nucleated Red Blood Cell % 0 /100 WBC (0); Platelet Count 213 Thou/mm3 (140-440); RDW Standard Deviation 41.1 fL (35.1-43.9); Red Blood Count 4.90 Miln/mm3 (4.50-5.90); White Blood Count 12.9 Thou/mm3 (3.8-10.6)
[2024-12-21 06:34] LABS: Anion Gap 9 (7-16); BUN/Creatinine Ratio 10 Ratio (12-20); Blood Urea Nitrogen 15 mg/dL (9-23); Calcium 9.3 mg/dL (8.3-10.6); Carbon Dioxide 26.6 mMol/L (20.0-31.0); Chloride 101 mMol/L (98-107); Creatinine (Component) 1.5 mg/dL (0.6-1.3); Estimated Creatinine Clearance 64.9 mL/min (>60); Glucose 150 mg/dL (74-106); Magnesium 1.7 mg/dL (1.6-2.6); Osmolality,Calculated 277 (275-295); Phosphorous 1.8 mg/dL (2.4-5.1); Potassium 4.0 mMol/L (3.4-5.1); Sodium 137 mMol/L (136-145); eGFR 59 See Note
[2024-12-21] MEDS: SODIUM CHLORIDE 0.9% 1000 ML 1,000 ML 100 ML IV (07:52)
[2024-12-21] MEDS: Magnesium Sulfate 2 GM Ivpb 2 GM/50 ML BAG IV (09:17)
[2024-12-21] MEDS: LACOSAMIDE INJ 200 MG/20 ML VIAL 100 MG IVP ×2 (09:18→20:30)
[2024-12-21] MEDS: levETIRAcetam INJ 100 MG/ML VIAL 5ML 500 MG IVP ×2 (09:18→20:30)
--- NOTE | 2024-12-21 10:55 | PD.IMCONS ---
HPI Data of Consult Requesting Physician: Marii Lee DO Primary Care Provider: Physician No Primary/Family Consult Narrative History of present illness: This is a 44 year old male with Pmhx of HTN, CKD, intracranial hemorrhage and seizures Patient was brought to the emergency room following a seizure episode Cardiology consultation requested for tachycardia Initially thought of a supraventricular tachycardia however it appears to be sinus rhythm sinus tachycardia currently patient is in sinus rhythm Heart rate is 98 bpm No history of chest pain neck pain left arm pain cc:: cc: Marii Lee DO Meds Home Medications and Allergies Home Medications ?Medication ?Instructions ?Recorded ?Confirmed ?Type clonidine HCl 0.1 mg tablet 0.1 mg PO BID 12/21/24 12/21/24 History levetiracetam 500 mg tablet 500 mg PO BID 12/21/24 12/21/24 History losartan 100 mg tablet 100 mg PO QDAY 12/21/24 12/21/24 History Allergies Allergy/AdvReac Type Severity Reaction Status Date / Time No Known Allergies Allergy Verified 06/28/18 16:33 Exam Vital Signs Temp Pulse Resp BP Pulse Ox O2 Del Method O2 Flow Rate 98.7 F 98 17 142/91 H 98 Oxy Mask 4 12/21/24 08:00 12/21/24 08:00 12/21/24 08:00 12/21/24 08:00 12/21/24 08:00 12/21/24 08:00 12/21/24 08:00 Routine HEENT Exam Head: Present normocephalic and atraumatic Eye: Present EOMI and PERRL ENT: Present mucous membranes moist Routine Neck Exam Neck: Present supple and trachea midline Routine Respiratory Exam Respiratory: Present chest non-tender, lungs clear, normal breath sounds and no resp distress Routine Cardiovascular Exam Cardiovascular: Present RRR Routine Abdominal Exam Abdominal: Present soft and normoactive bowel sounds Routine Extremities Exam Extremities: Present full ROM Routine Skin Exam Skin: Present intact, dry and warm Routine Neurological Exam Neurological: Present alert, oriented X3 and CN II-XII intact Routine Psychiatric Exam Psychiatric: Present normal affect and normal thought process Results Labs 12/21/24 05:43 12/21/24 05:43 Labs: Short CBC 12/20/24 12/20/24 12/21/24 Range/Units 16:25 23:37 05:43 WBC 15.4 H 15.4 H 12.9 H (3.8-10.6) Thou/mm3 Hgb 16.8 H 15.8 15.2 (13.5-16.0) g/dL Hct 50.5 45.7 44.4 (41.0-53.0) % Plt Count 277 221 D 213 (140-440) Thou/mm3 BMP 12/20/24 12/20/24 12/21/24 16:25 23:37 05:43 Sodium 143 137 137 Potassium 3.3 L 4.6 D 4.0 D Chloride 102 101 101 Carbon Dioxide 21.3 25.3 26.6 BUN 17 24 H 15 Creatinine 2.0 H 1.6 H 1.5 H Glucose 168 H 158 H 150 H Calcium 10.0 9.6 9.3 Liver Function 12/20/24 12/20/24 Range/Units 16:25 23:37 Total Bilirubin 0.7 0.7 (0.3-1.2) mg/dL AST 38 H 26 (0-34) U/L ALT 28 33 (10-49) U/L Alkaline Phosphatase 95 78 (46-116) U/L Albumin 4.6 4.3 (3.5-5.0) gm/dL Urine 12/20/24 Range/Units 18:02 Urine Color Colorless A (Lt Yel-Yel) Urine Clarity Clear (Clear/Hazy) Urine pH 5.5 (5.0-7.0) Ur Specific [place] 1.008 (1.001-1.035) Urine Protein Trace (Neg - Trace) Urine Glucose (UA) Negative (Negative) ABG Interpretation ABG results: 12/20/24 23:37 VBG pH 7.37 VBG pCO2 45 VBG pO2 44 VBG Base Excess 0 Assessment and Plan Assessment and plan (1) Hypertensive emergency: Status: Acute (2) Breakthrough seizure: Status: Acute (3) Sinus tachycardia: Status: Acute Additional Assessment & Plan Additional Plan: Recommend discontinuing Cardizem drip Echocardiographic exam to be done We will obtain baseline troponin
--- NOTE | 2024-12-21 11:20 | RESP.EEG ---
EEG complete and ready to read.
--- NOTE | 2024-12-21 11:43 | PC.SS ---
Patient is documented as confused. SS spoke to patient's aunts, Chayo and Thelma. Both indicated that patient is conserved. They are the medical decision makers for patient. Patient resides with patient's aunt, Thelma. Patient was admitted for seizures. Patient is independent with ADL's. No DME. Family provides transportation. PCP: Dr. Page in [place]. Neurologist: Dr. Terrell. Plan is to d/c patient back home where he resides in [place], [place]. Family can transport patient home. Pharmacy: [facility] in [place]. Medical decision makers: Chayo Pacheco, aunt, Thelmadario Whitt, aunt,
[2024-12-21] MEDS: SOD PHOS ADDITIVE 22.5 MMOL in SODIUM CHLORIDE 0.9% 500 ML 500 ML 84.583 MMOL IV (12:50)
--- NOTE | 2024-12-21 15:25 | PC.NURSE ---
notified DR. Wells patient failed nurse swallow screen
--- NOTE | 2024-12-21 16:04 | PC.SS ---
rounding note: neurology evaluation d/c tomorrow.
--- NOTE | 2024-12-21 17:20 | ESCONSULT_ITS ---
HPI Data of Consult Requesting Physician: Marii Lee DO Primary Care Provider: Physician No Primary/Family Consult Narrative Reason for consult: Hematemesis History of present illness: 44 years old male who is conserved not a good historian not been consulted by the internal medicine for an episode of hematemesis He was admitted for breakthrough seizures as he has a history of seizure on longstanding Keppra He also supposedly went into ventricular tachycardia but cardiology consultation has stopped the Cardizem drip and patient has sinus tachycardia echocardiogram pending cc:: cc: Marii Lee DO Review of Systems Review of Systems ROS Unobtainable: unobtainable due to medical condition Past Medical History Surgical History OTHER SURGICAL HX: Essential hypertension Seizure disorder Meds Home Medications and Allergies Home Medications ?Medication ?Instructions ?Recorded ?Confirmed ?Type clonidine HCl 0.1 mg tablet 0.1 mg PO BID 12/21/24 History levetiracetam 500 mg tablet 500 mg PO BID 12/21/24 History losartan 100 mg tablet 100 mg PO QDAY 12/21/2411/26 History Allergies Allergy/AdvReac Type Severity Reaction Status Date / Time No Known Allergies Allergy Verified 06/28/18 16:33 Exam Vital Signs Temp Pulse Resp BP Pulse Ox O2 Del Method O2 Flow Rate 98.7 F 84 19 161/106 H 94 L Room Air 4 12/21/24 16:00 12/21/24 16:00 12/21/24 16:00 12/21/24 16:00 12/21/24 16:00 12/21/24 16:00 12/21/24 12:00 Constitutional Comments: Alert but not a good historian Routine Respiratory Exam Comments: Normal to auscultation Routine Abdominal Exam Comments: Soft nontender Results Labs 12/21/24 05:43 12/21/24 05:43 Labs: Short CBC 12/20/24 12/21/24 Range/Units 23:37 05:43 WBC 15.4 H 12.9 H (3.8-10.6) Thou/mm3 Hgb 15.8 15.2 (13.5-16.0) g/dL Hct 45.7 44.4 (41.0-53.0) % Plt Count 221 D 213 (140-440) Thou/mm3 [facility] 12/20/24 12/21/24 23:37 05:43 Sodium 137 137 Potassium 4.6 D 4.0 D Chloride 101 101 Carbon Dioxide 25.3 26.6 BUN 24 H 15 Creatinine 1.6 H 1.5 H Glucose 158 H 150 H Calcium 9.6 9.3 Liver Function 12/20/24 Range/Units 23:37 Total Bilirubin 0.7 (0.3-1.2) mg/dL AST 26 (0-34) U/L ALT 33 (10-49) U/L Alkaline Phosphatase 78 (46-116) U/L Albumin 4.3 (3.5-5.0) gm/dL Urine 12/20/24 Range/Units 18:02 Urine Color Colorless A (Lt Yel-Yel) Urine Clarity Clear (Clear/Hazy) Urine pH 5.5 (5.0-7.0) Ur Specific [place] 1.008 (1.001-1.035) Urine Protein Trace (Neg - Trace) Urine Glucose (UA) Negative (Negative) ABG Interpretation ABG results: 12/20/24 23:37 VBG pH 7.37 VBG pCO2 45 VBG pO2 44 VBG Base Excess 0 Assessment and Plan Additional Assessment & Plan Additional Plan: # Hematemesis N.p.o. midnight tonight except p.o. meds Consent will be obtained from the conservatorship for fiberoptic esophagogastroduodenoscopy with possible biopsy possible therapeutic intervention under intravenous moderate sedation scheduled for tomorrow morning N.p.o. midnight tonight Other medical problems include Breakthrough seizures Essential hypertension Sinus tachycardia Thank you very much for the opportunity to participate in care of this patient
--- NOTE | 2024-12-21 17:58 | PD.RESPRO ---
Documentation for date of: 12/21/24 Subjective Subjective Interval history: Patient examined at bedside. Saturating adequately on room air from [employer].Telemetry was reviewed patient in normal sinus rhythm ranging 100?110. He was oriented to self only and seemed to be confused about why he was in the hospital. Slow to respond, somnolent. Discontinue diltiazem drip per cardiology recommendations. Creatinine has downtrended towards his baseline of 1.2. Per nursing, patient had hematemesis last night and not passing bedside swallow screen . Hb is stable at 15. GI consulted for concern of upper GI bleed. Continue Vimpat 100mg BID and start diet after speech evaluation. I spoke with his aunt Sarina today to provide an update. Exam Vital Signs Temp Pulse Resp BP Pulse Ox O2 Del Method O2 Flow Rate 98.7 F 84 19 161/106 H 94 L Room Air 4 12/21/24 16:00 12/21/24 16:00 12/21/24 16:00 12/21/24 16:12/21/24 16:00 12/21/24 16:12/21/24 12:00 Narrative Exam General: Middle age male, No acute distress, cooperative HEENT: NCAT, No JVD noted. Mucosa dry. Pupils are equal and reactive to light bilaterally Cardiovascular: Normal S1 and S2. Tachycardic rate and normal rhythm. Respiratory: Lungs are clear to auscultation bilaterally. No wheezing or crackles heard. Abdomen: Soft, nontender, not distended, normal bowel sounds. Skin: Warm to touch, dry, no rashes noted Musculoskeletal: No gross injuries. Able to move all 4 extremities. No pitting edema Neuro: Alert and oriented to self only. No focal neuro deficits. Psych: noted to have delayed processing and speech Objective Labs 12/22/24 05:07 12/22/24 05:07 Labs: Laboratory Results - last 24 hr 12/20/24 12/20/24 12/20/24 16:25 18:01 18:02 WBC RBC Hgb Hct MCV MCH MCHC RDW Std Deviation Plt Count Neut % (Auto) Lymph % (Auto) [place] % (Auto) Eos % (Auto) Baso % (Auto) Neut # (Auto) Lymph # (Auto) [place] # (Auto) Eos # (Auto) Baso # (Auto) Immature Gran # (Auto) Absolute Nucleated RBC Immature Gran % Nucleated RBC % Smear Path Review Sent to Pathologist VBG pH VBG pCO2 VBG pO2 VBG O2 Sat ([place]) VBG Base Excess Sodium Potassium Chloride Carbon Dioxide Anion Gap BUN Creatinine Estim Creat Clear Calc eGFR BUN/Creatinine Ratio Glucose Calculated Osmolality Lactic Acid Calcium Corrected Calcium Phosphorus Magnesium Total Bilirubin AST ALT Alkaline Phosphatase Total Protein Albumin Globulin Albumin/Globulin Ratio TSH 0.96 Ur Collection Type Catheter Urine Color Colorless A Urine Clarity Clear Urine pH 5.5 Ur Specific [place] 1.008 Urine Protein Trace Urine Glucose (UA) Negative Urine Ketones Negative Urine Blood Trace Urine Nitrite Negative Urine Bilirubin Negative Urine Urobilinogen (Auto) Negative Ur Leukocyte Esterase Negative Urine RBC < 1 Urine WBC 1 Ur Squamous Epith Cells 0 Urine Bacteria None Hyaline Casts < 1 Ur Culture Indicated? Not Indicated Urine Opiates Screen Negative Urine Fentanyl Screen Negative Ur Barbiturates Screen Negative U Amphetamin/Meth Scrn Negative U Benzodiazepines Scrn Positive A U Cocaine Metab Screen Negative U Marijuana (THC) Screen Negative Ethyl Alcohol < 3.0 Blood Type Antibody Screen Blood Bank Wristband ID 12/20/24 12/20/24 12/21/24 20:41 23:37 05:43 WBC 15.4 H 12.9 H RBC 4.96 4.90 Hgb 15.8 15.2 Hct 45.7 44.4 MCV 92 91 MCH 31.9 31.0 MCHC 34.6 34.2 RDW Std Deviation 42.7 41.1 Plt Count 221 D 213 Neut % (Auto) 90 H 88 H Lymph % (Auto) 3 L 7 L [place] % (Auto) 7 4 Eos % (Auto) 0 0 Baso % (Auto) 0 0 Neut # (Auto) 13.8 H 11.4 H Lymph # (Auto) 0.4 L 0.9 L [place] # (Auto) 1.1 H 0.5 Eos # (Auto) 0.0 0.0 Baso # (Auto) 0.0 0.0 Immature Gran # (Auto) 0.06 H 0.06 H Absolute Nucleated RBC 0.00 0.00 Immature Gran % 0 1 H Nucleated RBC % 0 0 Smear Path Review VBG pH 7.37 VBG pCO2 45 VBG pO2 44 VBG O2 Sat ([place]) 82 L VBG Base Excess 0 Sodium 137 137 Potassium 4.6 D 4.0 D Chloride 101 101 Carbon Dioxide 25.3 26.6 Anion Gap 11 9 BUN 24 H 15 Creatinine 1.6 H 1.5 H Estim Creat Clear Calc 61.2 64.9 eGFR 54 L 59 L BUN/Creatinine Ratio 15 10 L Glucose 158 H 150 H Calculated Osmolality 280 277 Lactic Acid 3.5 H 3.3 H Calcium 9.6 9.3 Corrected Calcium 9.6 Phosphorus 1.8 L Magnesium 1.9 1.7 Total Bilirubin 0.7 AST 26 ALT 33 Alkaline Phosphatase 78 Total Protein 7.2 Albumin 4.3 Globulin 2.9 Albumin/Globulin Ratio 1.5 TSH Ur Collection Type Urine Color Urine Clarity Urine pH Ur Specific [place] Urine Protein Urine Glucose (UA) Urine Ketones Urine Blood Urine Nitrite Urine Bilirubin Urine Urobilinogen (Auto) Ur Leukocyte Esterase Urine RBC Urine WBC Ur Squamous Epith Cells Urine Bacteria Hyaline Casts Ur Culture Indicated? Urine Opiates Screen Urine Fentanyl Screen Ur Barbiturates Screen U Amphetamin/Meth Scrn U Benzodiazepines Scrn U Cocaine Metab Screen U Marijuana (THC) Screen Ethyl Alcohol Blood Type A Positive Antibody Screen NEGATIVE Blood Bank Wristband ID Yes ABG Interpretation ABG results: 12/20/24 23:37 VBG pH 7.37 VBG pCO2 45 VBG pO2 44 VBG Base Excess 0 Quality Measures Quality Measures none Assessment & Plan Assessment Current Active Medications: Generic Name Dose Route Start Last Admin Trade Name Freq PRN Reason Stop Dose Admin Acetaminophen 650 mg 12/20/24 18:59 Acetaminophen 325 Mg Tablet PO 01/19/25 18:58 Q6H PRN Fever >101.5 Hydralazine HCl 10 mg 12/21/24 04:24 12/21/24 04:36 Hydralazine Inj 20 Mg/Ml Vial IVP 01/20/25 04:23 10 mg Q6HR PRN Administration SBP>180 or DBP>100 Sodium Chloride 1,000 mls @ 100 mls/hr 12/20/24 19:00 12/21/24 13:52 Ns IV 01/19/25 18:59 100 mls/hr .Q10H ANDREA Infusion Lacosamide 100 mg 12/21/24 09:00 12/21/24 09:18 Lacosamide Inj 200 Mg/20 Ml Vial IVP 01/20/25 08:59 100 mg BID ANDREA Administration Levetiracetam 500 mg 12/20/24 21:00 12/21/24 09:18 Levetiracetam Inj 100 Mg/Ml Vial 5ml IVP 01/19/25 20:59 500 mg Q12HR ANDREA Administration Midazolam HCl 2 mg 12/20/24 18:59 Midazolam Inj 1 Mg/Ml Vial 2 Ml IVP Q5MIN PRN breakthrough seizure Ondansetron HCl 4 mg 12/21/24 04:24 12/21/24 04:36 Ondansetron Inj 2 Mg/Ml Inj 2 Ml IVP 01/19/25 18:58 4 mg Q4HR PRN Administration NAUSEA OR VOMITING Protocol Plan Patient is a 44 year old male with Pmhx of HTN, CKD, intracranial hemorrhage and seizures who was brought in by ambulance due to breakthrough seizures. Patient was witnessed to have a seizure in the car per EMS that lasted about 1 minute. He was subsequently brought to the ED during which the patient had another tonic clonic seizure that lasted about 2minutes and resolved after receiving 5 mg of Versed. Patient has expressive aphasia at baseline and is conserved by his two aunts who help make his medical decisions. #Breakthrough seizure #Hx of Intracranial hemorrhage CT head negative for acute intracranial hemorrhage - Versed 2mg IVP q5min PRN for breakthrough seizures - seizure and aspiration precautions - continue NPO status. Has not passed nurse swallow screen yet. Now also NPO for EGD tomorrow. - neurology consulted--appreciate recs -vimpat 100mg IV BID -Continue with keppra 500mg IV BID -EEG pending #Hematemasis likely do to #Upper GI bleed Hb stable around 15, no recurrent episodes since admission. -Dr. Farris consulted -NPO for EGD today ?SVT vs ictal tachycardia, resolved Cardiology consulted from ED, recommended cardizem drip. -dc diltiazem drip - Pending echo - NS at 50ml/hr ordered Hypokalemia-resolved - replete as needed HTN - patient takes clonidine 0.2mg PO BID and losartan 100mg PO daily - will hold at this time as pt is NPO -dc hydralzaine -IV labetalol 10mg prn SBP >160 CKD - Cr of 2.0, likely baseline - holding ARB as pt is NPO - continue IV fluid hydration Dispo: telemetry for breakthrough seizure Diet: NPOfor EGD, speech language eval pending DVT ppx: SCD Code status: DNR The patient's management plan was discussed with my attending physician Dr. Rosa Wells, PGY-2 Attending Provider Attestation/Addendum Marii Doan DO, attest that I was physically present for the [place] portions of the service and evaluated the patient with the resident and I reviewed and discussed the case with the resident and agree with the resident's findings and plans of care as documented above Patient seen and eval this a.m. Patient is much more alert today and back at his baseline. He has mild weakness in RUE which appears to be residual from his previous stroke, as well as expressive aphasia. Per report from night shift manager, patient had an episode of projectile vomiting with blood upon arriving to the floor overnight. Patient also had another episode after he was attempting swallow evaluation. However, no documentation was noted. Patient states that he did not like the liquid used for swallow eval did not agree with him. Patient has failed 2 swallow screens. Will have GI further evaluate pt. Plan for EGD tomorrow. Patient has not had any seizures since admission. Will f/u with neurology recommendations. Family updated over the phone.
--- NOTE | 2024-12-21 19:51 | PC.NURSE ---
-patient family at bedside asking to have a diet order for patient, patient is currently NPO due to vomiting at risk of aspirating , patient family stated they have been giving patient bottled water and has been drinking water fine.family educated of patient at risk of aspirating due to vomiting episode previously and is the reason patient is NPO. pt family states he does not like tap water only bottled water which is why he vomited . MD mc notfied of situation and stated to do another nurse swallow screen. -spoke to md mc stating patient passed nurse swallow screen and ordered clear liquid diet.
[2024-12-21] MEDS: SODIUM CHLORIDE 0.9% 1000 ML 1,000 ML 50 ML IV (20:09)
[2024-12-21] MEDS: LABETALOL INJ 5 MG/ML VIAL 20 ML 10 MG IVP ×2 (20:24→21:53)
--- NOTE | 2024-12-21 23:53 | PD.NEUROPROG ---
Documentation for date of: 12/21/24 Exam - Neurology Vital Signs Temp Pulse Resp BP Pulse Ox O2 Del Method O2 Flow Rate 99.3 F 86 19 166/114 H 95 Room Air 4 12/21/24 20:00 12/21/24 21:53 12/21/24 20:00 12/21/24 21:53 12/21/24 20:00 12/21/24 20:00 12/21/24 12:00 Objective Labs 12/21/24 05:43 12/21/24 05:43 Labs: Laboratory Results - last 24 hr 12/20/24 12/21/24 23:37 05:43 WBC 15.4 H 12.9 H RBC 4.96 4.90 Hgb 15.8 15.2 Hct 45.7 44.4 MCV 92 91 MCH 31.9 31.0 MCHC 34.6 34.2 RDW Std Deviation 42.7 41.1 Plt Count 221 D 213 Neut % (Auto) 90 H 88 H Lymph % (Auto) 3 L 7 L [place] % (Auto) 7 4 Eos % (Auto) 0 0 Baso % (Auto) 0 0 Neut # (Auto) 13.8 H 11.4 H Lymph # (Auto) 0.4 L 0.9 L [place] # (Auto) 1.1 H 0.5 Eos # (Auto) 0.0 0.0 Baso # (Auto) 0.0 0.0 Immature Gran # (Auto) 0.06 H 0.06 H Absolute Nucleated RBC 0.00 0.00 Immature Gran % 0 1 H Nucleated RBC % 0 0 VBG pH 7.37 VBG pCO2 45 VBG pO2 44 VBG O2 Sat ([place]) 82 L VBG Base Excess 0 Sodium 137 137 Potassium 4.6 D 4.0 D Chloride 101 101 Carbon Dioxide 25.3 26.6 Anion Gap 11 9 BUN 24 H 15 Creatinine 1.6 H 1.5 H Estim Creat Clear Calc 61.2 64.9 eGFR 54 L 59 L BUN/Creatinine Ratio 15 10 L Glucose 158 H 150 H Calculated Osmolality 280 277 Lactic Acid 3.3 H Calcium 9.6 9.3 Corrected Calcium 9.6 Phosphorus 1.8 L Magnesium 1.9 1.7 Total Bilirubin 0.7 AST 26 ALT 33 Alkaline Phosphatase 78 Total Protein 7.2 Albumin 4.3 Globulin 2.9 Albumin/Globulin Ratio 1.5 Blood Type A Positive Antibody Screen NEGATIVE Blood Bank Wristband ID Yes ABG Interpretation ABG results: 12/20/24 23:37 VBG pH 7.37 VBG pCO2 45 VBG pO2 44 VBG Base Excess 0 Assessment & Plan Assessment and plan (1) Hypertensive emergency: Status: Acute (2) Breakthrough seizure: Status: Acute (3) Sinus tachycardia: Status: Acute
[2024-12-22] VITALS (20 sets, daily range): BP systolic 144–177; BP diastolic 97–121; PULSE 63–115; RESP 12–97; TEMP 36.3–37.4; O2SAT 92–95; BMI 24.4
--- NOTE | 2024-12-22 00:08 | PD.NEUROCONS ---
History of Present Illness Data of Consult Requesting Physician: Marii Lee DO Primary Care Provider: Physician No Primary/Family Consult Narrative History of present illness: Mr. West is a 44 year old male with hypertension, chronic kidney disease, intracranial hemorrhage with secondary seizures presented to the ER, brought in by ambulance due to breakthrough seizures. He was witnessed to have a seizure in the car that lasted for about 1 minute per EMS. He had another generalized tonic-clonic seizure that lasted for 2 minutes in the ER, got resolved after 5 mg of Versed. He has been taking Keppra 500 mg twice a day along with his usual medications for his blood pressure and has been compliant with that. He was noted to have supraventricular tachycardia for which he has been on Cardizem infusion as per cardiology recommendation as Cardizem IV push did not help much. Workup in the ER: CT head showed no acute intracranial abnormalities. Patient got admitted for further workup for management of tachycardia and breakthrough seizures. Neurology was consulted to evaluate further. Patient did not have any seizures after admission. cc:: cc: Marii Lee DO Review of Systems Review of Systems Systems Reviewed: All systems reviewed, normal except as documented Past Medical History Surgical History OTHER SURGICAL HX: Essential hypertension Seizure disorder Meds Home Medications and Allergies Home Medications ?Medication ?Instructions ?Recorded ?Confirmed ?Type clonidine HCl 0.1 mg tablet 0.1 mg PO BID 12/21/24 12/21/24 History levetiracetam 500 mg tablet 500 mg PO BID 12/21/24 12/21/24 History losartan 100 mg tablet 100 mg PO QDAY 12/21/24 12/21/24 History Allergies Allergy/AdvReac Type Severity Reaction Status Date / Time No Known Allergies Allergy Verified 06/28/18 16:33 Exam - Neurology Vital Signs Temp Pulse Resp BP Pulse Ox O2 Del Method O2 Flow Rate 99.3 F 86 19 166/114 H 95 Room Air 4 12/21/24 20:00 12/21/24 21:53 12/21/24 20:00 12/21/24 21:53 12/21/24 20:00 12/21/24 20:00 12/21/24 12:00 Narrative Exam GENERAL APPEARANCE: Well hydrated, well-nourished in no acute distress. HEENT: Normocephalic, atraumatic, extraocular movements intact. Pupils: Equal reacting to light and accommodation NECK: Supple, no JVD or bruits. CARDIOVASULAR: Heart: S1, S2 heard, regular without S3-S4 or murmur no rubs or gallops. LUNGS/CHEST: Clear to auscultation bilaterally. No rails, rhonchi, or wheezing. Normal inspection. ABDOMEN: Soft, nontender, with normal bowel sounds. No pulsatile masses. No rebound, rigidity, or guarding. Normal inspection and palpation. EXTREMITIES: Normal inspection and palpation. No edema, clubbing or cyanosis. SKIN: Warm and dry without rashes. Normal inspection. MUSCULOSKELETAL: No cervical, thoracic, lumbar or midline bony tenderness. Normal inspection. NEURO: Alert, awake and oriented x3. Cranial nerves: II through XII grossly intact. Speech and language: Normal with no dysarthria or dysphasia. Motor system: Tone and bulk: Normal: Strength: 5 out of 5 in all 4 extremities; No pronator drift noted. Deep tendon reflexes: 2+ bilaterally symmetrical. Plantar reflex: Downgoing bilaterally. Sensory system: Intact to all modalities of sensation bilaterally. Coordination: Intact to [id number] and gvnd-wdbu-dvem test bilaterally. No ataxia, no dysmetria, or dysdiadochokinesia noted. No intention tremors noted. Gait: Normal. Toe, heel, tandem walk all are normal. [place]: Negative. No signs of meningeal irritation noted. PSYCHIATRIC: Normal mood and affect. Results Labs 12/21/24 05:43 12/21/24 05:43 Labs: Short CBC 12/20/24 12/21/24 Range/Units 23:37 05:43 WBC 15.4 H 12.9 H (3.8-10.6) Thou/mm3 Hgb 15.8 15.2 (13.5-16.0) g/dL Hct 45.7 44.4 (41.0-53.0) % Plt Count 221 D 213 (140-440) Thou/mm3 BMP 12/20/24 12/21/24 23:37 05:43 Sodium 137 137 Potassium 4.6 D 4.0 D Chloride 101 101 Carbon Dioxide 25.3 26.6 BUN 24 H 15 Creatinine 1.6 H 1.5 H Glucose 158 H 150 H Calcium 9.6 9.3 Liver Function 12/20/24 Range/Units 23:37 Total Bilirubin 0.7 (0.3-1.2) mg/dL AST 26 (0-34) U/L ALT 33 (10-49) U/L Alkaline Phosphatase 78 (46-116) U/L Albumin 4.3 (3.5-5.0) gm/dL ABG Interpretation ABG results: 12/20/24 23:37 VBG pH 7.37 VBG pCO2 45 VBG pO2 44 VBG Base Excess 0 Assessment & Plan Assessment and plan (1) Hypertensive emergency: Status: Acute Assessment and plan: Continue with aggressive blood pressure management (2) Breakthrough seizure: Status: Acute Assessment and plan: Follow-up with EEG and MRI brain continue with the Keppra and Vimpat Follow seizure precautions. (3) Sinus tachycardia: Status: Acute Assessment and plan: Continue with rate control using diltiazem and labetalol
[2024-12-22 06:21] LABS: Basophils # (Auto) 0.1 Thou/mm3 (0.0-0.2); Basophils % (Auto) 1 % (0-2.5); Eosinophils # (Auto) 0.0 Thou/mm3 (0.0-0.5); Eosinophils % (Auto) 0 % (0-10); Hematocrit 41.3 % (41.0-53.0); Hemoglobin 14.2 g/dL (13.5-16.0); Immature Granulocytes Auto 0.04 Thou/mm3 (0.00-0.00); Lymphocytes # (Auto) 1.6 Thou/mm3 (1.0-4.8); Lymphocytes % (Auto) 13 % (10-50); Mean Corpuscular HGB Conc 34.4 g/dl (31.0-37.0); Mean Corpuscular Hemoglobin 31.8 pg (25.0-35.0); Mean Corpuscular Volume 92 fL (80-100); Monocytes # (Auto) 1.2 Thou/mm3 (0.0-0.8); Monocytes % (Auto) 10 % (0-12); Neutrophils # (Auto) 9.3 Thou/mm3 (1.8-7.7); Neutrophils % (Auto) 76 % (37-80); Nucleated Red Blood Cell # 0.00 Thou/mm3 (0.00-0.00); Nucleated Red Blood Cell % 0 /100 WBC (0); Platelet Count 219 Thou/mm3 (140-440); RDW Standard Deviation 43.6 fL (35.1-43.9); Red Blood Count 4.47 Miln/mm3 (4.50-5.90); White Blood Count 12.3 Thou/mm3 (3.8-10.6)
[2024-12-22 06:42] LABS: Anion Gap 9 (7-16); BUN/Creatinine Ratio 7 Ratio (12-20); Blood Urea Nitrogen 11 mg/dL (9-23); Calcium 8.5 mg/dL (8.3-10.6); Carbon Dioxide 25.8 mMol/L (20.0-31.0); Chloride 105 mMol/L (98-107); Creatinine (Component) 1.5 mg/dL (0.6-1.3); Estimated Creatinine Clearance 64.9 mL/min (>60); Glucose 104 mg/dL (74-106); Magnesium 2.3 mg/dL (1.6-2.6); Osmolality,Calculated 278 (275-295); Phosphorous 1.9 mg/dL (2.4-5.1); Potassium 3.9 mMol/L (3.4-5.1); Sodium 140 mMol/L (136-145); eGFR 59 See Note
[2024-12-22] MEDS: LACOSAMIDE INJ 200 MG/20 ML VIAL 100 MG IVP ×2 (10:55→20:31)
[2024-12-22] MEDS: levETIRAcetam INJ 100 MG/ML VIAL 5ML 500 MG IVP ×2 (10:57→20:31)
--- NOTE | 2024-12-22 13:08 | ESPR_ITS ---
Documentation for date of: 12/22/24 Subjective Subjective Interval history: Stable cardiac status stable cardiac status Exam Vital Signs Temp Pulse Resp BP Pulse Ox O2 Del Method O2 Flow Rate 98.0 F 73 15 151/100 H 92 L Room Air 4 12/22/24 12:00 12/22/24 12:00 12/22/24 12:00 12/22/24 12:00 12/22/24 12:00 12/22/24 12:00 12/21/24 12:00 Objective Labs 12/22/24 05:07 12/22/24 05:07 Labs: Laboratory Results - last 24 hr 12/22/24 05:07 WBC 12.3 H RBC 4.47 L Hgb 14.2 Hct 41.3 MCV 92 MCH 31.8 MCHC 34.4 RDW Std Deviation 43.6 Plt Count 219 Neut % (Auto) 76 Lymph % (Auto) 13 [place] % (Auto) 10 Eos % (Auto) 0 Baso % (Auto) 1 Neut # (Auto) 9.3 H Lymph # (Auto) 1.6 [place] # (Auto) 1.2 H Eos # (Auto) 0.0 Baso # (Auto) 0.1 Immature Gran # (Auto) 0.04 H Absolute Nucleated RBC 0.00 Immature Gran % 0 Nucleated RBC % 0 Sodium 140 Potassium 3.9 Chloride 105 Carbon Dioxide 25.8 Anion Gap 9 BUN 11 Creatinine 1.5 H Estim Creat Clear Calc 64.9 eGFR 59 L BUN/Creatinine Ratio 7 L Glucose 104 Calculated Osmolality 278 Calcium 8.5 Phosphorus 1.9 L Magnesium 2.3 ABG Interpretation ABG results: 12/20/24 23:37 VBG pH 7.37 VBG pCO2 45 VBG pO2 44 VBG Base Excess 0 Assessment & Plan A&P Narrative # Hematemesis N.p.o. midnight tonight except p.o. meds Consent will be obtained from the [facility] for fiberoptic esophagogastroduodenoscopy with possible biopsy possible therapeutic intervention under intravenous moderate sedation scheduled for tomorrow morning N.p.o. midnight tonight Other medical problems include Breakthrough seizures Essential hypertension Sinus tachycardia Thank you very much for the opportunity to participate in care of this patient Time Spent With Patient Time: Total time spent is greater than 50% in coordination of care (as documented) at patient's floor/unit and/or counseling patient:
--- NOTE | 2024-12-22 13:26 | ESPR_ITS ---
Documentation for date of: 12/22/24 Subjective Subjective Interval history: Patient examined at bedside. No events overnight. Blood pressure 158/100, other vitals are stable. Creatinine 1.5. Last night he passed bedside swallow screen but remains n.p.o. for EGD today. EEG and MRI are pending. Patient was able to state his name, date of and what city residing in. Due to his expressive aphasia, was difficult to assess full orientation. Restarted patient's clonidine 0.2 mg BID. Continue Vimpat 100mg BID and Keppra 500 BID. Exam Vital Signs Temp Pulse Resp BP Pulse Ox O2 Del Method O2 Flow Rate 98.0 F 73 15 151/100 H 92 L Room Air 4 12/22/24 12:00 12/22/24 12:00 12/22/24 12:00 12/22/24 12:00 12/22/24 12:00 12/22/24 12:00 12/21/24 12:00 Narrative Exam General: Middle age male, No acute distress, cooperative HEENT: NCAT, No JVD noted. Mucosa dry. Pupils are equal and reactive to light bilaterally Cardiovascular: Normal S1 and S2. Tachycardic rate and normal rhythm. Respiratory: Lungs are clear to auscultation bilaterally. No wheezing or crackles heard. Abdomen: Soft, nontender, not distended, normal bowel sounds. Skin: Warm to touch, dry, no rashes noted Musculoskeletal: No gross injuries. Able to move all 4 extremities. No pitting edema Neuro:Expressive aphasia, able to state name, , and the city. No new focal neuro deficits. Psych: noted to have delayed processing and speech Objective Labs 12/23/24 05:28 12/23/24 05:28 Labs: Laboratory Results - last 24 hr 12/22/24 05:07 WBC 12.3 H RBC 4.47 L Hgb 14.2 Hct 41.3 MCV 92 MCH 31.8 MCHC 34.4 RDW Std Deviation 43.6 Plt Count 219 Neut % (Auto) 76 Lymph % (Auto) 13 [place] % (Auto) 10 Eos % (Auto) 0 Baso % (Auto) 1 Neut # (Auto) 9.3 H Lymph # (Auto) 1.6 [place] # (Auto) 1.2 H Eos # (Auto) 0.0 Baso # (Auto) 0.1 Immature Gran # (Auto) 0.04 H Absolute Nucleated RBC 0.00 Immature Gran % 0 Nucleated RBC % 0 Sodium 140 Potassium 3.9 Chloride 105 Carbon Dioxide 25.8 Anion Gap 9 BUN 11 Creatinine 1.5 H Estim Creat Clear Calc 64.9 eGFR 59 L BUN/Creatinine Ratio 7 L Glucose 104 Calculated Osmolality 278 Calcium 8.5 Phosphorus 1.9 L Magnesium 2.3 ABG Interpretation ABG results: 12/20/24 23:37 VBG pH 7.37 VBG pCO2 45 VBG pO2 44 VBG Base Excess 0 Quality Measures Quality Measures none Assessment & Plan Assessment Current Active Medications: Generic Name Dose Route Start Last Admin Trade Name Freq PRN Reason Stop Dose Admin Acetaminophen 650 mg 12/20/24 18:59 Acetaminophen 325 Mg Tablet PO 01/19/25 18:58 Q6H PRN Fever >101.5 Clonidine 0.1 mg 12/22/24 09:00 12/22/24 09:01 Clonidine Hcl 0.1 Mg Tablet PO 01/21/25 08:59 Not Given BID ANDREA Sodium Chloride 1,000 mls @ 50 mls/hr 12/21/24 18:30 12/21/24 20:09 Ns IV 01/20/25 18:29 50 mls/hr .Q20H ANDREA Administration Labetalol HCl 10 mg 12/21/24 18:30 Labetalol Inj 5 Mg/Ml Vial 20 Ml IVP 01/20/25 18:29 Q4HR PRN SBP >160 Lacosamide 100 mg 12/21/24 09:00 12/22/24 10:55 Lacosamide Inj 200 Mg/20 Ml Vial IVP 01/20/25 08:59 100 mg BID ANDREA Administration Levetiracetam 500 mg 12/20/24 21:00 12/22/24 10:57 Levetiracetam Inj 100 Mg/Ml Vial 5ml IVP 01/19/25 20:59 500 mg Q12HR ANDREA Administration Losartan Potassium 100 mg 12/23/24 09:00 Losartan Potassium 25 Mg Tablet PO 01/22/25 08:59 QDAY ANDREA Midazolam HCl 2 mg 12/20/24 18:59 Midazolam Inj 1 Mg/Ml Vial 2 Ml IVP Q5MIN PRN breakthrough seizure Ondansetron HCl 4 mg 12/21/24 04:24 12/21/24 04:36 Ondansetron Inj 2 Mg/Ml Inj 2 Ml IVP 01/19/25 18:58 4 mg Q4HR PRN Administration NAUSEA OR VOMITING Protocol Plan Patient is a 44 year old male with Pmhx of HTN, CKD, intracranial hemorrhage and seizures who was brought in by ambulance due to breakthrough seizures. Patient was witnessed to have a seizure in the car per EMS that lasted about 1 minute. He was subsequently brought to the ED during which the patient had another tonic clonic seizure that lasted about 2minutes and resolved after receiving 5 mg of Versed. Patient has expressive aphasia at baseline and is conserved by his two aunts who help make his medical decisions. #Breakthrough seizure #Hx of Intracranial hemorrhage CT head negative for acute intracranial hemorrhage - Versed 2mg IVP q5min PRN for breakthrough seizures - seizure and aspiration precautions - passed nurse bedside swallow but continue NPO status for EGD - neurology consulted--appreciate recs -vimpat 100mg IV BID -Continue with keppra 500mg IV BID -EEG pending #Hematemasis likely do to #Upper GI bleed Hb stable around 15, no recurrent episodes since admission. -Dr. Fraris consulted -NPO for EGD today ?SVT vs ictal tachycardia, resolved Cardiology consulted from ED, recommended cardizem drip. -dc diltiazem drip - Pending echo - NS at 50ml/hr ordered Hypokalemia-resolved - replete as needed HTN - patient takes clonidine 0.2mg PO BID and losartan 100mg PO daily - will hold at this time as pt is NPO -dc hydralzaine -IV labetalol 10mg prn SBP >160 -resumed clonidine 02 mg BID CKD - Cr of 2.0, likely baseline - holding ARB as pt is NPO - continue IV fluid hydration Dispo: telemetry for breakthrough seizure Diet: NPOfor EGD, speech language eval pending DVT ppx: SCD Code status: DNR The patient's management plan was discussed with my attending physician Dr. Rosa Wells, PGY-2 Attending Provider Attestation/Addendum Marii Doan DO, attest that I was physically present for the [place]ckeon portions of the service and evaluated the patient with the resident and I reviewed and discussed the case with the resident and agree with the resident's findings and plans of care as documented above Patient seen and eval this a.m. He is pending endoscopy today. No further episodes of hematemesis. H&H downtrending. Scheduled for MRI and EEG as well. Patient has not had any seizures thus far. No further episodes of tachycardia and off Cardizem. Will restart home BP medications. No acute events overnight. Anticipate discharge within the next 24 to 48 hours.
--- NOTE | 2024-12-22 14:58 | PC.SS ---
Rounding note: EEG, MRI, neurology .
--- NOTE | 2024-12-22 18:15 | SUR.PHASEI ---
Arrived to recovery [facility] via [facility]. Report received from Ani CUELLAR. Resting with eyes closed but responds to name. No c/o pain or discomfort. No s/o distress.
[2024-12-22] MEDS: hydrALAZINE INJ 20 MG/ML VIAL 10 MG IVP (18:41)
--- NOTE | 2024-12-22 18:59 | SUR.PHASEI ---
Taken to room 277 via gurney by Marisela CUELLAR.
[2024-12-22] MEDS: ONDANSETRON INJ 2 MG/ML INJ 2 ML 4 MG IVP (20:31)
[2024-12-22] MEDS: SODIUM CHLORIDE 0.9% 1000 ML 1,000 ML 50 ML IV (21:14)
--- NOTE | 2024-12-22 23:08 | VVPN_ITS ---
Telemedicine visit statement This visit was conducted with the use of phone was obtained on 12/22/24 at 2308. Documentation for date of: 12/22/24 Subjective Subjective Interval history: Patient is in telemetry. No seizures reported after admission. He has vomited once after he ate the pudding. His heart rate transiently went to 120s but went back down to the 90s now. He denies any chest pain or shortness of breath. Virtual exam Vital Signs Temp Pulse Resp BP Pulse Ox O2 Del Method O2 Flow Rate 99.3 F 109 H 12 157/119 H 94 L Room Air 3 12/22/24 20:00 12/22/24 20:30 12/22/24 20:00 12/22/24 20:30 12/22/24 20:00 12/22/24 20:00 12/22/24 18:05 Objective Labs 12/22/24 05:07 12/22/24 05:07 Labs: Laboratory Results - last 24 hr 12/22/24 05:07 WBC 12.3 H RBC 4.47 L Hgb 14.2 Hct 41.3 MCV 92 MCH 31.8 MCHC 34.4 RDW Std Deviation 43.6 Plt Count 219 Neut % (Auto) 76 Lymph % (Auto) 13 [place] % (Auto) 10 Eos % (Auto) 0 Baso % (Auto) 1 Neut # (Auto) 9.3 H Lymph # (Auto) 1.6 [place] # (Auto) 1.2 H Eos # (Auto) 0.0 Baso # (Auto) 0.1 Immature Gran # (Auto) 0.04 H Absolute Nucleated RBC 0.00 Immature Gran % 0 Nucleated RBC % 0 Sodium 140 Potassium 3.9 Chloride 105 Carbon Dioxide 25.8 Anion Gap 9 BUN 11 Creatinine 1.5 H Estim Creat Clear Calc 64.9 eGFR 59 L BUN/Creatinine Ratio 7 L Glucose 104 Calculated Osmolality 278 Calcium 8.5 Phosphorus 1.9 L Magnesium 2.3 ABG Interpretation ABG results: 12/20/24 23:37 VBG pH 7.37 VBG pCO2 45 VBG pO2 44 VBG Base Excess 0 Assessment & Plan Problem List (1) Breakthrough seizure: Status: Acute Assessment and plan: Patient did not experience any recurrent seizures after admission. Tolerating Keppra and Vimpat well. Will continue the same. EEG showed left cerebral hemispherical epileptiform discharges consistent with seizures. (2) Hypertensive emergency: Status: Acute Assessment and plan: Needs aggressive blood pressure management, added amlodipine 5 mg now. (3) SVT (supraventricular tachycardia): Status: Acute Assessment and plan: On Cardizem infusion and labetalol
[2024-12-23] VITALS (9 sets, daily range): BP systolic 120–179; BP diastolic 60–111; PULSE 60–85; RESP 12–93; TEMP 36.2–37.1; O2SAT 95–97; BMI 24.7
--- NOTE | 2024-12-23 | XR_ITS ---
Examination: MRI brain without intravenous contrast. Date and time of exam: December 23, 2024, 1011 hours INDICATIONS: Multiple seizures episodes 12/20/2024, history intracranial hemorrhage 2019 Technique: Multiple axial and sagittal images of the brain obtained. Siemens high-resolution 1.5 Antoinette short bore scanners utilized. Sagittal sections, T1-weighted, TR 500, TE 14, are performed. Axial sections proton-density and T2-weighted have been obtained. Inversion recovery axial images, TR 9, 260, TE 111, TI 2500. Diffusion weighted images, axial sections, TR 4800, TE 128, B value 1000 Axial sections, ADC map, TR 4800, TE 128 Findings: Enlargement of the sella turcica is not present. The optic chiasm and infundibular are not remarkable. Prepontine and interpeduncular cisterns are not enlarged. There is no localized enlargement of the medulla or graciela. Fourth ventricle and cerebellar tonsils appear normal in position. No subacute area of hemorrhage density is seen. Mass in the cerebellopontine angle region is not evident. Globes symmetrical. Orbital musculature including medial lateral rectus muscles do not exhibit abnormality. Diffusion-weighted images demonstrate no focus of restricted diffusion. Increased white matter signal evident, including large old infarct posterior left parietal lobe Mass effect upon the ventricular system is not identified. 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
[2024-12-23 06:08] LABS: Basophils # (Auto) 0.1 Thou/mm3 (0.0-0.2); Basophils % (Auto) 1 % (0-2.5); Eosinophils # (Auto) 0.1 Thou/mm3 (0.0-0.5); Eosinophils % (Auto) 1 % (0-10); Hematocrit 43.9 % (41.0-53.0); Hemoglobin 14.7 g/dL (13.5-16.0); Immature Granulocytes Auto 0.04 Thou/mm3 (0.00-0.00); Lymphocytes # (Auto) 1.7 Thou/mm3 (1.0-4.8); Lymphocytes % (Auto) 18 % (10-50); Mean Corpuscular HGB Conc 33.5 g/dl (31.0-37.0); Mean Corpuscular Hemoglobin 31.4 pg (25.0-35.0); Mean Corpuscular Volume 94 fL (80-100); Monocytes # (Auto) 1.1 Thou/mm3 (0.0-0.8); Monocytes % (Auto) 11 % (0-12); Neutrophils # (Auto) 6.5 Thou/mm3 (1.8-7.7); Neutrophils % (Auto) 69 % (37-80); Nucleated Red Blood Cell # 0.00 Thou/mm3 (0.00-0.00); Nucleated Red Blood Cell % 0 /100 WBC (0); Platelet Count 200 Thou/mm3 (140-440); RDW Standard Deviation 45.1 fL (35.1-43.9); Red Blood Count 4.68 Miln/mm3 (4.50-5.90); White Blood Count 9.4 Thou/mm3 (3.8-10.6)
[2024-12-23 06:32] LABS: Anion Gap 9 (7-16); BUN/Creatinine Ratio 9 Ratio (12-20); Blood Urea Nitrogen 13 mg/dL (9-23); Calcium 8.6 mg/dL (8.3-10.6); Carbon Dioxide 27.7 mMol/L (20.0-31.0); Chloride 105 mMol/L (98-107); Creatinine (Component) 1.5 mg/dL (0.6-1.3); Estimated Creatinine Clearance 64.9 mL/min (>60); Glucose 96 mg/dL (74-106); Magnesium 2.2 mg/dL (1.6-2.6); Osmolality,Calculated 283 (275-295); Phosphorous 2.6 mg/dL (2.4-5.1); Potassium 4.2 mMol/L (3.4-5.1); Sodium 142 mMol/L (136-145); eGFR 59 See Note
[2024-12-23] MEDS: LOSARTAN POTASSIUM 25 MG TABLET 100 MG PO (08:16)
[2024-12-23] MEDS: LACOSAMIDE INJ 200 MG/20 ML VIAL 100 MG IVP (08:30)
[2024-12-23] MEDS: levETIRAcetam INJ 100 MG/ML VIAL 5ML 500 MG IVP (08:31)
--- NOTE | 2024-12-23 08:57 | ESPR_ITS ---
Documentation for date of: 12/23/24 Subjective Subjective Interval history: Hemoglobin hematocrit 14.7 and 43.9 Upper endoscopy showed distal esophageal ulcers oozing blood and duodenal erosions and ulcers Continue Protonix hemoglobin hematocrit staying stable Exam Vital Signs Temp Pulse Resp BP Pulse Ox O2 Del Method O2 Flow Rate 97.6 F 60 18 179/109 H 95 Room Air 3 12/23/24 08:00 12/23/24 08:17 12/23/24 08:00 12/23/24 08:17 12/23/24 08:00 12/23/24 08:00 12/22/24 18:05 Objective Labs 12/23/24 05:28 12/23/24 05:28 Labs: Laboratory Results - last 24 hr 12/23/24 05:28 WBC 9.4 RBC 4.68 Hgb 14.7 Hct 43.9 MCV 94 MCH 31.4 MCHC 33.5 RDW Std Deviation 45.1 H Plt Count 200 Neut % (Auto) 69 Lymph % (Auto) 18 [place] % (Auto) 11 Eos % (Auto) 1 Baso % (Auto) 1 Neut # (Auto) 6.5 Lymph # (Auto) 1.7 [place] # (Auto) 1.1 H Eos # (Auto) 0.1 Baso # (Auto) 0.1 Immature Gran # (Auto) 0.04 H Absolute Nucleated RBC 0.00 Immature Gran % 0 Nucleated RBC % 0 Sodium 142 Potassium 4.2 Chloride 105 Carbon Dioxide 27.7 Anion Gap 9 BUN 13 Creatinine 1.5 H Estim Creat Clear Calc 64.9 eGFR 59 L BUN/Creatinine Ratio 9 L Glucose 96 Calculated Osmolality 283 Calcium 8.6 Phosphorus 2.6 Magnesium 2.2 Impressions Impression: Multiple distal esophageal ulcers Duodenal erosions Duodenal ulcer Continue current management ABG Interpretation ABG results: 12/20/24 23:37 VBG pH 7.37 VBG pCO2 45 VBG pO2 44 VBG Base Excess 0 Assessment & Plan A&P Narrative # Hematemesis N.p.o. midnight tonight except p.o. meds [facility] with possible biopsy possible therapeutic intervention under intravenous moderate sedation scheduled for tomorrow morning N.p.o. midnight tonight Other medical problems include Breakthrough seizures Essential hypertension Sinus tachycardia Thank you very much for the opportunity to participate in care of this patient Time Spent With Patient Time: Total time spent is greater than 50% in coordination of care (as documented) at patient's floor/unit and/or counseling patient:
--- NOTE | 2024-12-23 10:03 | PC.SS ---
SS follow up note; Patient is pending an MRI, will discharge home when medically cleared.
--- NOTE | 2024-12-23 13:42 | ESDS_ITS ---
<Statement entered by Marii Lee DO - 12/24/24 07:54> I, Marii Lee DO, attest that I was physically present for the mckeon portions of the service and evaluated the patient with the resident and I reviewed and discussed the case with the resident and agree with the resident's findings and plans of care as documented above Planned Discharge Date 12/23/24 DS: Providers Provider Date of admission: 12/20/24 18:56 Primary care physician: Physician No Primary/Family Admitting Provider: Marii Lee DO Attending Provider on Admission: Marii Lee DO Consults: 12/20/24 19:04 Consult to Neurology / Tele-Neurology Stat Comment: seizure Consulting Provider: Abdoulaye Calles 12/20/24 19:05 Consult to Cardiology Stat Comment: Consulting Provider: Marjorie Pablo 12/21/24 14:26 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 Farris 12/21/24 15:33 Consult to Gastroenterology Routine Comment: episode of hematemesis on admission Consulting Provider: Andrea Farris Attending Provider on DC: Marii Lee DO Discharging Provider: Marii Lee DO DS: Diagnosis Problem List Completed Was Problem List Reviewed/Reconciled?: Yes Hospital Course Hospital Course Hospital course: Reason for hospitalization: breakthrough seizure, GI Bleed Patient is a 44 year old male with Pmhx of HTN, CKD, intracranial hemorrhage and seizures who was brought in by ambulance due to breakthrough seizures. Patient was witnessed to have a seizure in the car per EMS that lasted about 1 minute. He was subsequently brought to the ED during which the patient had another tonic clonic seizure that lasted about 2minutes and resolved after receiving 5 mg of Versed. Patient has expressive aphasia at baseline and is conserved by his two aunts who help make his medical decisions. Patient was also noted to be tachycardic in ED with elevated BP. Patient received cardizem pushes, but patient remained tachycardic. Cardiology was consulted from ED and recommended cardizem drip. CT head was done in the ED showing no acute intracranial findings. Neurology started Vimpat 100mg BID and increased keppra to 750mg BID. Tachycardia resolved and diltiazem drip was discontinued. His vitals remained stable. GI was also consulted due to reported large volume hematemasis. Hb downtrended from 16 to 14.7 during hospitalization. EGD showed oozing esophageal ulcers, gastritis, and duodenal erosions with bleeding. He remained seizure free and was tolerating diet. Patient is now in stable condition and ready for discharge. Recommendations were given as below. Discharge Recommendations: Increase your Keppra dose from 500mg BID to 750 BID. Continue taking lacosamide 100mg BID to prevent seizures. Continue taking pantoprazole as treatment for esophageal ulcers. Follow up with GI to review H pylori results. Resume other previous medications. Follow up with PCP in 1-2 weeks. Hospital Diagnoses: #Breakthrough seizure #Hx of Intracranial hemorrhage #Hematemasis #Upper GI bleed #esophageal ulcers # ictal tachycardia, resolved Hypokalemia-resolved HTN CKD The patient's management plan was discussed with my attending physician Dr. Lee. Montse Wells MD, PGY-2 Time Spent with Patient Time attestation: Total time spent providing and/or coordinating discharge services: Time spent: Greater than 30 minutes Exam Vital Signs Temp Pulse Resp BP Pulse Ox O2 Del Method O2 Flow Rate 97.1 F 62 13 160/107 H 97 Room Air 3 12/23/24 12:00 12/23/24 12:13 12/23/24 12:00 12/23/24 12:13 12/23/24 12:00 12/23/24 12:00 12/22/24 18:05 Narrative Exam General: Middle age male, No acute distress, cooperative HEENT: NCAT, No JVD noted. Mucosa moist. Pupils are equal and reactive to light bilaterally Cardiovascular: Normal S1 and S2. Regular rate and normal rhythm. Respiratory: Lungs are clear to auscultation bilaterally. No wheezing or crackles heard. Abdomen: Soft, nontender, not distended, normal bowel sounds. Skin: Warm to touch, dry, no rashes noted Musculoskeletal: No gross injuries. Able to move all 4 extremities. No pitting edema Neuro:Expressive aphasia, able to state name, , and the city. No new focal neuro deficits. Psych: noted to have delayed processing and speech Discharge Plan Plan Patient Disposition: HOME (Self Care) Patient condition on transfer: Stable Prescriptions/Referrals Prescriptions/Med Rec: New lacosamide 100 mg tablet 100 mg PO BID Qty: 60 0RF pantoprazole 40 mg tablet,delayed release (DR/EC) 40 mg PO QDAY Qty: 30 2RF levetiracetam [Keppra] 750 mg tablet 750 mg PO BID 30 Days Qty: 60 0RF Continued clonidine HCl 0.1 mg tablet 0.1 mg PO BID Patient Comments: TAKE TWO TABLETS BY MOUTH TWICE DAILY losartan 100 mg tablet 100 mg PO QDAY Patient Comments: TAKE ONE TABLET BY MOUTH ONCE DAILY Discontinued levetiracetam 500 mg tablet 500 mg PO BID Patient Comments: TAKE ONE TABLET BY MOUTH TWICE DAILY Referrals: Andrea Farris MD [Physician, Gastroenterology] No Primary/Family,Physician [Primary Care Provider] Abdoulaye Calles MD [Physician, Neurology] Patient/Caregiver Discharge Instructions Other Discharge Activity Instructions:: Increase your Keppra dose from 500mg BID to 750 BID. Continue taking lacosamide 100mg BID to prevent seizures. Continue taking pantoprazole as treatment for esophageal ulcers. Follow up with GI to review H pylori results. Resume other previous medications. Follow up with PCP in 1-2 weeks. Education Materials: Epilepsy How Seizures Affect Body, Epilepsy: Safety During a Seizure Print Language: Lao Stand Alone Forms: Nancy Award Info., Patient Portal Info Letter Discharge Order Discharge Orders: Discharge (Routine); Ordered 12/23/24 Ordered By: Montse Wells Quality Discharge Quality Measures VTE prophylaxis
== END 2024-12-23 15:24 | disposition home or self-care (01) | DRG 100 ==
LOC: SERX 17:44 → SERHOLD 19:09 → S2NX 23:18
PROVIDERS: Specialist; Student in an Organized Health Care Education/Training Program; Admitting Provider Internal Medicine; Emergency Provider Emergency Medicine; Visit Provider Internal Medicine
PROC: 0DJ08ZZ Inspection of Upper Intestinal Tract, Via Natural or Artificial Opening Endoscopic (ICD-10-PCS; CPT 43239; principal; 2024-12-22 17:30)
DX: G40.909 Epilepsy, unspecified, not intractable, without status epilepticus (principal); K22.11 Ulcer of esophagus with bleeding; K26.4 Chronic or unspecified duodenal ulcer with hemorrhage; I16.1 Hypertensive emergency; I47.10 Supraventricular tachycardia, unspecified; I69.320 Aphasia following cerebral infarction; E87.6 Hypokalemia; N18.9 Chronic kidney disease, unspecified; I12.9 Hypertensive chronic kidney disease with stage 1 through stage 4 chronic kidney disease, or unspecified chronic kidney disease; Z66 Do not resuscitate; Z79.899 Other long term (current) drug therapy; K29.70 Gastritis, unspecified, without bleeding
CPT/HCPCS: 36415; 70450; 70551; 71045; 74018; 80048; 80053; 80307; 80320; 81001; 82803; 83605; 83735; 84100; 84443; 85025; 85610; 86850; 86900; 86901; 87338; 93005; 93306; 95816; 99285; A4314; A4649; C9254; J0360; J1200; J1953; J2250; J2405; J2470; J3010; J3475; J3480; J3490; J7030; J7120; J7999; A9270; G0480; J1920